=== PATIENT | male | born 1975 | race American Indian/Alaskan Native ===

== ENCOUNTER 2017-01-08 19:02 | Inpatient (IN) ==
[2017-01-08] MEDS ORDERED: ACETAMINOPHEN 325 MG TABLET PO ONE ×2 (19:29→20:53)
[2017-01-08] MEDS ORDERED: CLINDAMYCIN 150 MG CAPSULE PO ONE (19:51)
[2017-01-08 20:16] LABS: Mean Cell Volume 89.2 fL (80.0-100.0); Mean Corpuscular HGB Conc 33.3 g/dL (31.0-36.0); Mean Corpuscular Hemoglobin 29.7 pg (26.0-34.0); Platelet Count 226 K/mcL (140-440); RBC 3.97 M/mcL (4.50-5.90); Red Cell Distribution Width 13.5 % (11.5-14.5)
[2017-01-08 20:39] LABS: ALT/SGPT 12 U/l (0-40); Albumin 4.3 gm/dL (3.2-5.2); Albumin/Globulin Ratio 1.3 (1.0-2.3); Alkaline Phosphatase 84 U/L (39-117); Blood Urea Nitrogen 69 mg/dl (6-20)
[2017-01-08 20:45] LABS: Band Neutrophils % 6 % (0-10); Eosinophils % (Manual) 1 % (0-7); Lymphocytes % 2 % (15-49); Monocytes % (Manual) 2 % (1-12); Platelet Estimate NORMAL (NORMAL); RBC Morphology NORMAL (NORMAL); Segmented Neutrophils % 89 % (38-78)
[2017-01-08] MEDS ORDERED: CALCIUM GLUCONATE 13.95 MEQ in DEXTROSE 5% IN WATER 50 ML IV ONE (21:03)
[2017-01-08] MEDS ORDERED: SODIUM POLYSTYRENE SULFONATE 15 GM/60 ML SUSPENSION PO STA (21:07)
[2017-01-08] MEDS ORDERED: 0.9 % SODIUM CHLORIDE 500 ML IV ONE (21:08)
--- NOTE | 2017-01-09 00:31 | Emergency Department Note ---
Fever HPI - General Chief Complaint: Fever Stated Complaint: chills and body feels weak Time Seen by Provider: 01/08/17 19:50 Source: patient Mode of arrival: ambulatory Limitations: no limitations - History of Present Illness HPI Narrative: 41-year-old male dialysis patient of Dr. Garsia comes in for left calf/thigh pain with weakness and chills. Unclear if he has a fever. No nausea vomiting dyspnea or diarrhea. It came on suddenly when he was at work and so he had to clock out and leave and come here. Denies any injury to the left leg. He does not make any urine - Related Data Home Medications Medication Instructions Recorded Confirmed Simvastatin [Zocor] 40 mg PO HS 02/15/15 01/08/17 Calcitriol [Rocaltrol] 0.25 mcg PO 3XW 01/09/16 01/08/17 Previous Rx's Medication Instructions Recorded calcium citrate-vitamin D3 315 2 tab PO TID 30 Days 09/30/16 mg-200 unit tablet Allergies Allergy/AdvReac Type Severity Reaction Status Date / Time No Known Drug Allergies Allergy Verified 01/08/16 13:43 Review of Systems All systems ED: reviewed and negative except as stated. Fever PMH - Past Medical History Attestation: Yes: The following information was validated with the patient. Medical history: Reports: diabetes, renal disease (On dialysis), other (obesity , OSORIO with hypoxia, neuropathy.) Surgical history ED: Reports: orthopedic, other (All toes have been amputated), other (Gastric bypass) - Social History smoking status: Former smoker Alcohol use: Reports: None Drug use: Reports: none Physical Exam Morbidly obese male no acute distress resting comfortably able to answer questions appropriately. Normocephalic atraumatic. Conjunctive are clear sclerae nonicteric. No nasal discharge or congestion. Oropharynx is pink and moist. Neck is supple without lymphadenopathy or thyromegaly. Heart is regular rate and rhythm. No lungs are clear to auscultation bilaterally without wheezes rales rhonchi or respiratory distress. Abdomen soft nontender nondistended. Examination of bilateral lower feet shows amputation of all 10 toes. He has a 2 mm ulcer at the forefoot on the left does not appear infected and is just draining a small amount of serosanguineous fluid onto the bandage. The left calf is slightly erythematous and tender compared to the right but they both have chronic venous stasis changes. Significant rubor to the left calf without cord felt. +2 radial pulse. Alert oriented no dysarthria or ataxia - General Limitations: no limitations Course Vital Signs Temperature 102.2 F H 01/08/17 19:04 Pulse Rate 117 H 01/08/17 19:04 Respiratory Rate 18 01/08/17 19:04 Blood Pressure 149/79 01/08/17 19:04 Pulse Oximetry (%) 94 01/08/17 19:04 Temperature 101.6 F H 01/09/17 01:16 Pulse Rate 103 H 01/09/17 01:16 Respiratory Rate 22 01/09/17 01:16 Blood Pressure 157/92 01/09/17 01:16 Pulse Oximetry (%) 97 01/09/17 01:16 Fever - Lab Data Lab results reviewed: Yes I reviewed the patient's lab results. Result diagrams: 01/08/17 19:32 01/08/17 19:32 Lab Results 01/08/17 01/08/17 01/08/17 Range/Units 19:32 19:32 19:32 WBC 17.6 H (4.5-11.0) K/mcL RBC 3.97 L (4.50-5.90) M/mcL Hgb 11.8 L (13.5-16.5) g/dL Hct 35.4 L (41.0-55.0) % POC Hct (41.0-55.0) % MCV 89.2 (80.0-100.0) fL MCH 29.7 (26.0-34.0) pg MCHC 33.3 (31.0-36.0) g/dL RDW 13.5 (11.5-14.5) % Plt Count 226 (140-440) K/mcL MPV 9.6 (7.4-10.4) fL Total Counted 100 Seg Neutrophils % 89 H (38-78) % Band Neutrophils % 6 (0-10) % Lymphocytes % 2 L (15-49) % Monocytes % (Manual) 2 (1-12) % Eosinophils % (Manual) 1 (0-7) % Platelet Estimate Normal (NORMAL) RBC Morphology Normal (NORMAL) VBG Lactic Acid 1.0 (0.5-2.2) mmol/L POC Sodium (133-145) mmol/L Sodium 137 (133-145) mmol/L POC Potassium (3.3-5.1) mmol/L Potassium 5.8 H (3.3-5.1) mmol/L POC Chloride (96-108) mmol/L Chloride 93 L (96-108) mmol/L Carbon Dioxide 23 (22-30) mmol/L POC Total CO2 (22-30) mmol/L Anion Gap 21.0 H (8-16) POC BUN (6-20) mg/dl BUN 69 H (6-20) mg/dl Creatinine 8.9 H* (0.7-1.2) mg/dl POC Creatinine (0.7-1.2) mg/dl GFR Calculation 7 Glucose 149 H (70-105) mg/dL POC Glucose (70-105) mg/dL Calcium 7.6 L (8.6-10.4) mg/dl POC WB Ioniz Calcium (1.16-1.32) mmol/L Total Bilirubin 0.5 (0.0-1.0) mg/dL AST 14 (0-37) U/l ALT 12 (0-40) U/l Alkaline Phosphatase 84 (39-117) U/L Total Protein 7.7 (5.9-8.4) gm/dL Albumin 4.3 (3.2-5.2) gm/dL Globulin 3.4 (2.2-3.7) gm/dL Albumin/Globulin Ratio 1.3 (1.0-2.3) 01/08/17 Range/Units 22:35 WBC (4.5-11.0) K/mcL RBC (4.50-5.90) M/mcL Hgb (13.5-16.5) g/dL Hct (41.0-55.0) % POC Hct 34.0 L (41.0-55.0) % MCV (80.0-100.0) fL MCH (26.0-34.0) pg MCHC (31.0-36.0) g/dL RDW (11.5-14.5) % Plt Count (140-440) K/mcL MPV (7.4-10.4) fL Total Counted Seg Neutrophils % (38-78) % Band Neutrophils % (0-10) % Lymphocytes % (15-49) % Monocytes % (Manual) (1-12) % Eosinophils % (Manual) (0-7) % Platelet Estimate (NORMAL) RBC Morphology (NORMAL) VBG Lactic Acid (0.5-2.2) mmol/L POC Sodium 136 (133-145) mmol/L Sodium (133-145) mmol/L POC Potassium 4.4 (3.3-5.1) mmol/L Potassium (3.3-5.1) mmol/L POC Chloride 97 (96-108) mmol/L Chloride (96-108) mmol/L Carbon Dioxide (22-30) mmol/L POC Total CO2 23 (22-30) mmol/L Anion Gap (8-16) POC BUN 71 H (6-20) mg/dl BUN (6-20) mg/dl Creatinine (0.7-1.2) mg/dl POC Creatinine 9.6 H* (0.7-1.2) mg/dl GFR Calculation Glucose (70-105) mg/dL POC Glucose 200 H (70-105) mg/dL Calcium (8.6-10.4) mg/dl POC WB Ioniz Calcium 0.89 L (1.16-1.32) mmol/L Total Bilirubin (0.0-1.0) mg/dL AST (0-37) U/l ALT (0-40) U/l Alkaline Phosphatase (39-117) U/L Total Protein (5.9-8.4) gm/dL Albumin (3.2-5.2) gm/dL Globulin (2.2-3.7) gm/dL Albumin/Globulin Ratio (1.0-2.3) Patient does not make urine so not collected - Radiology Data Radiology results reviewed: Yes I reviewed the patient's radiology results. Chest x-ray pulmonary venous congestion but no acute infiltrate Ultrasound of left lower leg negative for clot - EKG Data EKG attestation: Yes I reviewed and interpreted this EKG. EKG results narrative: EKG shows normal sinus rhythm no ischemia rate 99 Disposition Clinical Impression: Hyperkalemia, Chronic kidney disease on chronic dialysis Cellulitis Qualifiers: Site of cellulitis: extremity Site of cellulitis of extremity: lower extremity Laterality: left Qualified Code(s): L03.116 - Cellulitis of left lower limb Diabetic foot ulcer associated with secondary diabetes mellitus Qualifiers: Diabetic foot ulcer location: midfoot Laterality: left Non-pressure ulcer stage : unspecified non-pressure ulcer stage Qualified Code(s): E08.621 - Diabetes mellitus due to underlying condition with foot ulcer Summary: Initial workup to rule out DVT but also make sure there was no other cause for his febrile illness besides cellulitis. He does not appear septic or toxic although he does meet criteria for sepsis intervention with fever associated lab -especially given his high risk context of diabetes and dialysis. He states though that he is not on insulin secondary to gastric bypass fixing his diabetes. He initially appeared to be somewhat dehydrated so 500 mL normal saline bolus was given Blood cultures were done and antibiotics started. Then his potassium came back high and so he was given calcium and Kayexalate to bring that down-it came down from 5.8 down to 4.4. There were no EKG changes. Chest x-ray showed some pulmonary venous congestion-but we have allowed the patient to drink and he took in almost 1400 mL of fluid during his time in the ER, in addition to the fluid bolus . He was given Tylenol for the fever which did bring it down somewhat but did not break it. I discussed his situation with Dr. Peña the hospitalist because I was concerned for the elevated white count and fever in the context of high risk factors including diabetes and dialysis-even though cellulitis was clearly the source. He agreed to accept the patient for inpatient care here Disposition: Xfer As Inpt ([facility]) Condition: Fair
--- NOTE | 2017-01-09 00:49 | Internal Med History&Physical ---
Medical - H&P: [facility] Patient information: Note initiated : 01/09/17 at 12:43 am Service Date, if different from initiated Date: [] Patient: Ji Church a 41 y/o M admitted on for chills and body feels weak. Chief Complaint: [] History of present illness: Mr. Church is a 41 year old male with h/o DM, chr left leg wound, nathalie transmetatarsal amputations, ESRD on HD, MWF presents to the ER with complaints of fatigue, malaise, fever and chills. The patient notes that since this AM he has not been feeling well, he was doing well yesterday, he had feeling sick, tired, having fever chills and rigors, he notes that his leg was more sore than before, and his likely noticed it to be more red. He notes that he has had h/o cellulitis in the past, h/o mrsa in the past, and given that his symptoms were similar to his cellulitis in the past he decided to come to the ER In the ER he was noted to be tachycardic, febrile, with elevated wbc count, lactic acid is normal, CXR on my read shows mild pulmonary congestion. he was hyperkalemic on presentation, which was medically treated and repeat K was wnl. patient was present during the interview, and the patient denies any cough , sinus issues, any known injury to the leg, he has chr wound on the base of the foot, which has mild drainage, and he follows with Dr Sánchez for same, no worsening or increased drainage noted on that wound. The patient does not make urine, had has last HD on Tuesday and notes he tries to be compliant with dietary restrictions but is not always successful. All systems: reviewed and no additional remarkable complaints except as stated ( as mentioned in HPI) Medical - H&P: PMH Medical history: Medical History (Last Updated 01/09/17 @ 00:31 by Jose Alfredo Page MD) Diabetic foot ulcer associated with secondary diabetes mellitus (Acute) Cast removal (Acute) Ulcer (Acute) DM MOrbid obesity ESRD on HD Surgical history: gastric bypass nathlaie TMAleft arm fistula. Pertinent family history: mother with DM, [place], no h/o cancer in family Social history: lives with ex smoker ex etoh no recreational drugs. Medical - H&P: Meds Home Medications Medication Instructions Recorded Confirmed Type Simvastatin [Zocor] 40 mg PO HS 02/15/15 01/08/17 History Calcitriol [Rocaltrol] 0.25 mcg PO 3XW 01/09/16 01/08/17 History calcium citrate-vitamin D3 315 2 tab PO TID 30 Days 09/30/16 01/08/17 Rx mg-200 unit tablet Allergies Allergy/AdvReac Type Severity Reaction Status Date / Time No Known Drug Allergies Allergy Verified 01/08/16 13:43 Medical - H&P: Exam - Constitutional Vitals: Temp Pulse Resp BP Pulse Ox 101.5 F H 99 H 21 135/61 95 01/08/17 23:04 01/08/17 23:36 01/08/17 23:36 01/08/17 23:31 01/08/17 23:36 Exam: GENERAL: The patient is a well-developed, well-nourished in no apparent distress. Is alert and oriented x3. Morbidly obese VITAL SIGNS: Reviewed and as noted elsewhere. HEENT: Head is normocephalic and atraumatic. Extraocular muscles are intact. Pupils are equal, round, and reactive to light. Nares appeared normal. Mouth appears any without lesions. Mucous membranes are moist. NECK: Normal to inspection, Supple, No lymphadenopathy or thyromegaly. LUNGS: Air entry equal on both sides, no wheezing, crackles or rhonchi noted. No accessory muscles of respiration HEART: Regular rate and rhythm normal, S1 and S2 heard, no Gallop, S3 or Rub Noted, No Gross murmur heard. ABDOMEN: Soft, nontender, and nondistended. Positive bowel sounds. No hepatosplenomegaly was noted. large abdomen EXTREMITIES: No cyanosis, clubbing, rash, lesions or edema. left leg has erythema extending from ankle to mid leg, no skin break noted. no localized abscess. The patient has nathalie TMA and on the left foot has a 0.5cms grad 3 pressure ulcer which has mild yellowish discharge, NEUROLOGIC: Cranial nerves II through XII are grossly intact. Motor and Sensory System Grossly Intact PSYCHIATRIC: Normal affect, Normal Mood. Appropriate Behavior. SKIN: No ulceration or wounds noted, No jaundice, No rash noted. Medical - H&P: Reslt - Labs CBC & Chem 7: 01/08/17 19:32 01/08/17 19:32 Labs: Short CBC 01/08/17 Range/Units 19:32 WBC 17.6 H (4.5-11.0) K/mcL Hgb 11.8 L (13.5-16.5) g/dL Hct 35.4 L (41.0-55.0) % Plt Count 226 (140-440) K/mcL BMP 01/08/17 19:32 Sodium 137 Potassium 5.8 H Chloride 93 L Carbon Dioxide 23 BUN 69 H Creatinine 8.9 H* Glucose 149 H Calcium 7.6 L Liver Function 01/08/17 Range/Units 19:32 Total Bilirubin 0.5 (0.0-1.0) mg/dL AST 14 (0-37) U/l ALT 12 (0-40) U/l Alkaline Phosphatase 84 (39-117) U/L Albumin 4.3 (3.2-5.2) gm/dL Medical - H&P: A/P - Narrative A/P Narrative: Cellulitis: left lower extremity, given h/o MRSA, DM, and ESRD, treat with vanco and zosyn, monitor, await blood cultures. Hyperkalemia resolved in ER Sepsis Due to cellulitis, treat with antibiotics, BP stable, lactate has received 2L fluid in the ER, ESRD on HD, MWF, will discuss with nephrology on need for HD tomorrow vs tuesday , CXR shows mild pulmonary congestion, DM, sliding scale insulin Diet renal diabetic Code full DVT hep sq
[2017-01-09] MEDS ORDERED: NALOXONE HCL 0.4 MG/ML VIAL IV PRN (01:16)
[2017-01-09] MEDS ORDERED: VANCOMYCIN 1,500 MG in 0.9 % SODIUM CHLORIDE 500 ML IV ONE (01:16)
[2017-01-09] MEDS ORDERED: DEXTROSE 50% 50 ML VIAL IV PRN (01:16)
[2017-01-09] MEDS ORDERED: SENNOSIDES 1 TABLET PO PRN (01:16)
[2017-01-09] MEDS ORDERED: HYDROcodone/APAP 5/325MG TABLET PO PRN (01:16)
[2017-01-09] MEDS ORDERED: ONDANSETRON 4 MG/2 ML VIAL IV PRN (01:16)
[2017-01-09] MEDS ORDERED: VANCOMYCIN PER PHARMACY IV ONE (01:16)
[2017-01-09] MEDS ORDERED: PIPERACILLIN SODIUM/TAZOBACTAM 3.375 GM in DEXTROSE 5% IN WATER 50 ML IV SCH (01:16)
[2017-01-09] MEDS ORDERED: IPRATROPIUM/ALBUTEROL 3 ML AMPUL.NEB NEB PRN (01:16)
[2017-01-09] MEDS ORDERED: PIPERACILLIN SODIUM/TAZOBACTAM 3.375 GM VIAL IV ONE (01:28)
[2017-01-09] MEDS ORDERED: VANCOMYCIN 1 GM VIAL ONE (01:29)
[2017-01-09] MEDS ORDERED: VANCOMYCIN 500 MG VIAL ONE (01:30)
[2017-01-09] MEDS: ACETAMINOPHEN 325 MG TABLET PO PRN ×2 (04:48→09:21)
[2017-01-09] MEDS ORDERED: ACETAMINOPHEN 325 MG TABLET PO ONE (04:50)
[2017-01-09 05:52] LABS: Estimated Average Glucose(eAG) 146 mg/dL; Hemoglobin A1C 6.7 % HGB (4.0-6.0)
[2017-01-09 06:02] LABS: Basophils # (Auto) 0 K/mcL (0.0-0.3); Basophils % (Auto) 0 % (0.0-2.0); Eosinophils # (Auto) 0 K/mcL (0.0-0.7); Eosinophils % (Auto) 0 % (0.0-7.0); Granulocytes % (Auto) 95.9 % (38.0-78.0); Lymphocytes # (Auto) 0.7 K/mcL (1.5-4.8); Lymphocytes % (Auto) 2.6 % (15.5-49.0); Mean Cell Volume 89.2 fL (80.0-100.0); Mean Corpuscular HGB Conc 33.7 g/dL (31.0-36.0); Mean Corpuscular Hemoglobin 30.1 pg (26.0-34.0); Monocytes # (Auto) 0.4 K/mcL (0.1-0.9); Monocytes % (Auto) 1.5 % (1.0-12.0); Platelet Count 202 K/mcL (140-440); RBC 3.62 M/mcL (4.50-5.90); Red Cell Distribution Width 13.4 % (11.5-14.5)
[2017-01-09 06:20] LABS: ALT/SGPT 10 U/l (0-40); Albumin 3.8 gm/dL (3.2-5.2); Albumin/Globulin Ratio 1.2 (1.0-2.3); Alkaline Phosphatase 71 U/L (39-117); Bilirubin,Direct < 0.2 mg/dL (0.0-0.3); Blood Urea Nitrogen 77 mg/dl (6-20); Gamma Glutamyl Transpeptidase 17 U/L (8-61); Magnesium 1.8 mg/dL (1.6-2.5); Uric Acid 6.8 mg/dL (2.5-8.0)
[2017-01-09] MEDS ORDERED: VANCOMYCIN PER PHARMACY IV SCH (07:15)
[2017-01-09] MEDS: INSULIN LISPRO 1 UNIT/0.01 ML UNIT SQ SCH ×4 (07:41→21:00)
--- NOTE | 2017-01-09 08:05 | Ultrasound Report ---
CLINICAL INFORMATION: Leg pain and swelling COMPARISON: None. FINDINGS: The entire deep venous system including the common femoral, superficial femoral, popliteal and paired trifurcation calf veins are easily compressible and show normal venous blood flow on color and spectral Doppler. No evidence of thrombus IMPRESSION: Negative exam - no evidence of deep vein thrombosis. Interpreted and Authenticated by: Juan M Angel 01/09/17
--- NOTE | 2017-01-09 08:10 | XRay Report ---
CLINICAL INFORMATION: Fever COMPARISON: None. FINDINGS:The heart size, mediastinum and pulmonary vessels are unremarkable. The lungs are clear. There are no effusions. The bones and soft tissues are within normal limits. IMPRESSION: Normal chest. Interpreted and Authenticated by: Juan M Angel 01/09/17
--- NOTE | 2017-01-09 08:59 | Internal Med Progress Note ---
Medical - PN: Subj Patient information: Note initiated : 01/09/17 at 8:56 am Service Date, if different from initiated Date: [] Patient: Ji Church a 41 y/o M admitted on 01/09/17 for chills and body feels weak. Chief Complaint: [] Interval history: Mr. Church is a 41 year old male with h/o DM, chr left leg wound, nathalie transmetatarsal amputations, ESRD on HD, MWF presents to the ER with complaints of fatigue, malaise, fever and chills. The patient notes that since this AM he has not been feeling well, he was doing well yesterday, he had feeling sick, tired, having fever chills and rigors, he notes that his leg was more sore than before, and his likely noticed it to be more red. He notes that he has had h/o cellulitis in the past, h/o mrsa in the past, and given that his symptoms were similar to his cellulitis in the past he decided to come to the ER In the ER he was noted to be tachycardic, febrile, with elevated wbc count, lactic acid is normal, CXR on my read shows mild pulmonary congestion. he was hyperkalemic on presentation, which was medically treated and repeat K was wnl. patient was present during the interview, and the patient denies any cough , sinus issues, any known injury to the leg, he has chr wound on the base of the foot, which has mild drainage, and he follows with Dr Sánchez for same, no worsening or increased drainage noted on that wound. The patient does not make urine, had has last HD on Tuesday and notes he tries to be compliant with dietary restrictions but is not always successful. 01/09, Pt seen examined, no acute overnight event, patient remains febrile, but denies any other complaints. His labs reviewed show that his wbc count is up to 27K, his lactate is neg, cmp shows wnl K, CXR reported as negative His leg feels better today, the area of redness has not changed significantly since yesterday, microbiology remains pending. Pertinent ROS: Denies headache, dizziness Denies chest pain, palpitations Denies cough or shortness of breath Denies abdominal pain, nausea or vomiting. - Constitutional Vitals: Vital Signs Temp Pulse Resp BP Pulse Ox 101.1 F H 95 H 24 H 179/82 90 01/09/17 05:33 01/09/17 05:10 01/09/17 05:10 01/09/17 05:10 01/09/17 06:59 Period Temp Pulse Resp BP Sys/Mcneill Pulse Ox Last 24 Hr 101.0 F-103.3 F 95-104 22-24 157-179/82-92 85-97 Intake and Output 01/08/17 01/09/17 01/09/17 21:59 05:59 13:59 Intake Total 850 / 1430 Balance 850 / 1430 Weight 329 lb 8 oz Intake & Output: Intake & Output 01/08/17 01/09/17 01/09/17 21:59 05:59 13:59 Intake Total 850 / 1430 Balance 850 / 1430 Weight 329 lb 8 oz Intake: Oral 300 / 300 IV - Manual Only 550 / 550 Exam: Constitutional; Afebrile, cooperative, alert, not in distress, morbidly obese Eyes- No icterus, , No periorbital swelling Ears- Ext ear normal, hearing normal to conversation. Neck- Midline trachea, supple Respiratory system: Air Entry equal on both sides, No crackles or wheezing, no rhonchi. CVS- Rate rhythm regular, S1,S2 heard, no gallop, no rub. Abdomen- Soft nontender abdomen, no organomegaly, no tenderness, no guarding or rigidity, SLAT TWISTER- AOOx3, moving all extremities, no gross focal deficit noted. Extremity: patient redness extends to above ankle and involves 2/3 of the left lower leg, nearly unchanged since yesterday, no skip lesions noted. Medical - PN: Obj Da - Labs CBC & Chem 7: 01/09/17 04:49 01/09/17 04:49 Labs: Abnormal Lab Results 01/09/17 01/09/17 04:49 04:49 WBC 27.0 H RBC 3.62 L Hgb 10.9 L Hct 32.3 L Gran % 95.9 H Lymph % (Auto) 2.6 L Gran # 25.9 H Lymph # 0.7 L Chloride 91 L Anion Gap 21.0 H BUN 77 H Creatinine 9.7 H* Glucose 179 H Hemoglobin A1c 6.7 H Calcium 7.4 L Meds: Medications Acetaminophen (Tylenol) 650 mg PO Q6HP PRN PRN Reason: PAIN/FEVER > 101 Last Admin: 01/09/17 04:48 Dose: 650 mg Acetaminophen/Hydrocodone Bitart ([place] 5/325mg) 1 tab PO Q4HP PRN PRN Reason: Pain Albuterol/Ipratropium (Duoneb) 3 ml NEB Q4HRT PRN PRN Reason: Shortness Of Breath Or Wheezing Calcitriol (Rocaltrol) 0.25 mcg PO MoWeFr@0900 [facility] Calcium Carbonate/Glycine (Tums) 1,000 mg CHEWED TIDAC [facility] Calcium/Vitamin D (Calcium W/Vit D3) 2 mg PO TID [facility] Dextrose (Dextrose 50%) 0 ml IV UD PRN PRN Reason: Hypoglycemia Diagnostic Test (Pha) (Accu-Chek) 1 each FS ACHS [facility] Last Admin: 01/09/17 07:41 Dose: 1 each Heparin Sodium (Porcine) (Heparin) 5,000 unit SQ Q12 VICENTE Piperacillin Sod/Tazobactam (Sod 2.25 gm/ Dextrose) 50 mls @ 100 mls/hr IV Q12H [facility] Insulin Human Lispro (Humalog) 0 unit SQ ACHS [facility] PRN Reason: Protocol Last Admin: 01/09/17 07:41 Dose: 1 unit Naloxone HCl (Narcan) 0.1 mg IV Q2MIN PRN PRN Reason: Opiate Reversal Ondansetron HCl (Zofran) 4 mg IV Q4HP PRN PRN Reason: Nausea And Vomiting Senna (Senokot) 2 tab PO HSP PRN PRN Reason: Constipation Simvastatin (Zocor) 40 mg PO HS [facility] Vancomycin HCl (Vancomycin Per Pharmacy) 1 order IV UD [facility] Medical - PN: A/P - Time Spent With Patient Total time spent is greater than 50% in coordination of care (as documented) at patient's floor/unit and/or counseling patient: - Narrative A/P Narrative: Cellulitis: left lower extremity, given h/o MRSA, DM, and ESRD, treat with vanco and zosyn, monitor, await blood cultures. Fever persistant, will get another set of bc today, Hyperkalemia resolved in ER Sepsis Due to cellulitis, treat with antibiotics, wbc worsening today, but bp stable, lactate neg, ESRD on HD, MWF, CXR reported neg, will get his [facility] HD on tuesday. DM, sliding scale insulin, glucose at goal. Diet renal diabetic Code full DVT hep sq Medical - PN: Qual - VTE Deep Vein Thrombosis/Pulmonary Embolism Present on Admission: No
[2017-01-09] MEDS ORDERED: SODIUM POLYSTYRENE SULFONATE 15 GM/60 ML SUSPENSION PO SCH (09:00)
[2017-01-09] MEDS ORDERED: CALCIUM W/VIT D3 500 MG TABLET PO SCH (09:00)
[2017-01-09] MEDS: CALCIUM CARBONATE 500 MG TAB.CHEW CHEWED SCH ×3 (09:19→17:25)
[2017-01-09] MEDS: HEPARIN 5,000 UNIT/ML VIAL SQ SCH ×2 (09:20→20:59)
[2017-01-09] MEDS ORDERED: CALCIUM W/VIT D3 500 MG TABLET PO ONE (09:30)
[2017-01-09] MEDS: PIPERACILLIN SODIUM/TAZOBACTAM 2.25 GM in DEXTROSE 5% IN WATER 50 ML IV SCH ×2 (11:48→21:00)
[2017-01-09] MEDS: CALCIUM W/VIT D3 500 MG TABLET PO SCH ×2 (15:45→20:59)
[2017-01-09] MEDS: SIMVASTATIN 40 MG TABLET PO SCH (21:00)
[2017-01-10 06:40] LABS: Basophils # (Auto) 0 K/mcL (0.0-0.3); Basophils % (Auto) 0.4 % (0.0-2.0); Eosinophils # (Auto) 0 K/mcL (0.0-0.7); Eosinophils % (Auto) 0.3 % (0.0-7.0); Lymphocytes # (Auto) 1.3 K/mcL (1.5-4.8); Mean Cell Volume 89.8 fL (80.0-100.0); Mean Corpuscular HGB Conc 33.7 g/dL (31.0-36.0); Mean Corpuscular Hemoglobin 30.3 pg (26.0-34.0); Monocytes # (Auto) 0.4 K/mcL (0.1-0.9); Monocytes % (Auto) 3.3 % (1.0-12.0); Platelet Count 179 K/mcL (140-440); RBC 3.27 M/mcL (4.50-5.90); Red Cell Distribution Width 13.9 % (11.5-14.5)
[2017-01-10 07:24] LABS: ALT/SGPT 10 U/l (0-40); Albumin 3.4 gm/dL (3.2-5.2); Albumin/Globulin Ratio 1.1 (1.0-2.3); Alkaline Phosphatase 61 U/L (39-117); Bilirubin,Direct < 0.2 mg/dL (0.0-0.3); Blood Urea Nitrogen 92 mg/dl (6-20); Gamma Glutamyl Transpeptidase 20 U/L (8-61)
[2017-01-10] MEDS: CALCIUM CARBONATE 500 MG TAB.CHEW CHEWED SCH ×3 (07:41→17:32)
[2017-01-10] MEDS: INSULIN LISPRO 1 UNIT/0.01 ML UNIT SQ SCH ×4 (07:42→21:04)
[2017-01-10] MEDS ORDERED: CALCITRIOL 0.25 MCG CAPSULE PO SCH (09:00)
[2017-01-10] MEDS: PIPERACILLIN SODIUM/TAZOBACTAM 2.25 GM in DEXTROSE 5% IN WATER 50 ML IV SCH ×2 (09:11→21:07)
[2017-01-10] MEDS: HEPARIN 5,000 UNIT/ML VIAL SQ SCH ×2 (09:11→21:06)
[2017-01-10] MEDS: CALCIUM W/VIT D3 500 MG TABLET PO SCH ×3 (09:13→21:07)
--- NOTE | 2017-01-10 09:34 | Nephrology Consult Note ---
History of Present Illness - Reason for Consult Patient information: Note initiated : 01/10/17 at 9:29 am Service Date, if different from initiated Date: [] Patient: Ji Church a 41 y/o M admitted on 01/09/17 for chills and body feels weak. Chief Complaint: [] Consult date: 01/10/17 end stage renal disease Requesting physician: Sara Horner - Chief Complaint CELLULITIS/FEVER - History of Present Illness Mr Church is a 41 y/o pleasant male with PMH of DM type 2, morbid obesity, ESRD on HD and other medical issues who is admitted with left LE cellulitis Patient presented to the ED on Tuesday night with fever, chills and left LE pain and redness. He had fever of 102, s/o cellulitis on left LE and he was tachycardic but with normal BP. Patient has been hospitalised for the treatment for the same. He is currently on zosyn and vancomycin for this with improving symptoms Patient also had hyperkalemia on presentation which was treated with kayexalate and his K has been in normal range since He c/o LE pain and redness He has no c/o SOB, CP, dizziness No edema No urinary symptoms No other significant issues Review of Systems All systems PM: reviewed and no additional remarkable complaints except as stated (as mentioned in HPI) Past History Past medical history: ESRD on HD anemia of CKD renal osteodystrophy DM type 2 morbid obesity OSORIO Past surgical history: s/p gastric bypass s/p AVF surgery s/p right TMA Past family history: Mother had ESRD from DM, Father has h/o HTN and dyslipidemia Past social history: lives with his currently no addictions Medications and Allergies Home Medications Medication Instructions Recorded Confirmed Type Simvastatin [Zocor] 40 mg PO HS 02/15/15 01/08/17 History Calcitriol [Rocaltrol] 0.25 mcg PO 3XW 01/09/16 01/08/17 History calcium citrate-vitamin D3 315 2 tab PO TID 30 Days 09/30/16 01/08/17 Rx mg-200 unit tablet Calcium Acetate [Phoslo] 667 mg PO TIDCC 01/09/17 01/09/17 History Allergies Allergy/AdvReac Type Severity Reaction Status Date / Time No Known Drug Allergies Allergy Verified 01/08/16 13:43 Exam - Vital Signs Vital signs: Temp Pulse Resp BP Pulse Ox 97.4 F 74 16 147/72 95 01/10/17 08:00 01/10/17 08:00 01/10/17 08:00 01/10/17 08:00 01/10/17 08:00 - General Appearance General appearance: appears started age, obese EENT: mucous membranes moist Neck: no JVD Respiratory: clear Cardiology: no rub, normal S1, normal S2 Gastrointestinal: no tenderness, no guarding, no organomegaly Integumentary: warm and dry (left LE with tenderness and increased temp on touch ) Musculoskeletal: no cyanosis, no clubbing Psychiatric: mood/affect appropriate Results - Lab Results 01/10/17 04:44 01/10/17 04:44 Most recent lab results Calcium 7.1 mg/dl (8.6-10.4) L 01/10/17 04:44 Phosphorus 5.2 mg/dL (2.7-4.5) H 01/10/17 04:44 Magnesium 2.0 mg/dL (1.6-2.5) 01/10/17 04:44 Assessment and Plan (1) ESRD on dialysis Dialysis today for 5 hrs using revaclear max dialyser, 3K/2.5Ca dialysate, QB 400ML/MIN, qd 800ml/min, UF goal to dry weight please dose meds per dialysis Anemia from CKD; will monitor and resume aranesp as outpt cellulitis: on broad spectrum antibiotics, with improving white count, fever blood culture negative management per hospitalist team Status: Acute (2) Cellulitis Status: Acute Qualifiers: Site of cellulitis: extremity Site of cellulitis of extremity: lower extremity Laterality: left Qualified Code(s): L03.116 - Cellulitis of left lower limb
[2017-01-10 10:39] LABS: Vancomycin,Random 15.7 ug/ml
[2017-01-10] MEDS: ACETAMINOPHEN 325 MG TABLET PO PRN (15:26)
--- NOTE | 2017-01-10 16:15 | Internal Med Progress Note ---
Medical - PN: Subj Patient information: Note initiated : 01/10/17 at 4:15 pm Service Date, if different from initiated Date: [] Patient: Ji Church a 41 y/o M admitted on 01/09/17 for chills and body feels weak. Chief Complaint: [] Interval history: January 09, 2017: History of present illness: Mr. Church is a 41 year old male with h/o DM, chr left leg wound, nathalie transmetatarsal amputations, ESRD on HD, MWF presents to the ER with complaints of fatigue, malaise, fever and chills. The patient notes that since this AM he has not been feeling well, he was doing well yesterday, he had feeling sick, tired, having fever chills and rigors, he notes that his leg was more sore than before, and his likely noticed it to be more red. He notes that he has had h/o cellulitis in the past, h/o mrsa in the past, and given that his symptoms were similar to his cellulitis in the past he decided to come to the ER In the ER he was noted to be tachycardic, febrile, with elevated wbc count, lactic acid is normal, CXR on my read shows mild pulmonary congestion. he was hyperkalemic on presentation, which was medically treated and repeat K was wnl. patient was present during the interview, and the patient denies any cough , sinus issues, any known injury to the leg, he has chr wound on the base of the foot, which has mild drainage, and he follows with Dr Sánchez for same, no worsening or increased drainage noted on that wound. The patient does not make urine, had has last HD on Tuesday and notes he tries to be compliant with dietary restrictions but is not always successful. 01/09, Pt seen examined, no acute overnight event, patient remains febrile, but denies any other complaints. His labs reviewed show that his wbc count is up to 27K, his lactate is neg, cmp shows wnl K, CXR reported as negative His leg feels better today, the area of redness has not changed significantly since yesterday, microbiology remains pending. January 10: today, the patient notes he is feeling better. His leg is feeling less tender. Although it is still quite tender to the touch. He otherwise is not experiencing subjective fever or chills, nausea or vomiting, eadaches or dizziness, chest pain or shortness of breath . He really makes no urine. e is having dialysis this morning. He did have a temperature of 100 at 4 AM, but has been afebrile since then. he reports that his metatarsal foot ulceron the left leghas very minimal drainage. -nurses note he has quite severe sleep apnea. He apparently rolling his CPAP at home, and has not been able to get another one yet. - Constitutional Vitals: Vital Signs Temp Pulse Resp BP Pulse Ox 97.2 F 58 L 14 144/89 99 01/10/17 12:00 01/10/17 15:46 01/10/17 12:00 01/10/17 15:46 01/10/17 12:00 Period Temp Pulse Resp BP Sys/Mcneill Pulse Ox Last 24 Hr 97.2 F-100.2 F 58-74 14-22 130-159/72-89 64-99 Intake and Output 01/10/17 01/10/17 01/10/17 05:59 13:59 21:59 Intake Total 200 / 200 360 / 360 Output Total 5224 / 5224 49084 / 48132 Balance 200 / 200 -4864 / -4864 -48402 / -59663 Intake & Output: Intake & Output 01/10/17 01/10/17 01/10/17 05:59 13:59 21:59 Intake Total 200 / 200 360 / 360 Output Total 5224 / 5224 00890 / 88941 Balance 200 / 200 -4864 / -4864 -93765 / -81857 Intake: Oral 200 / 200 360 / 360 Output: Hemodialysis UF 5224 / 5224 27862 / 02207 Other: Meal snack Breakfast Percent of Meal Consumed 100% 100% Feeding Ability Assist with Tray Set Up Independent # Bowel Movements 1 on exam, he is an overweight white male,who is in no acute distress. He is lying flat, while the nurse accesses his fistula. Neck is supple without obvious lymphadenopathy or JVD. Cardiac exam shows regular rate and rhythm. Lungs are clear to auscultation. Abdomen is soft and nontender. Extremities: Show no significant edema. He has bilateral metatarsal amputations The left foot has a small ulcer, which is bandaged,at the area of the first metatarsal. There is a rather purplish pink discoloration from his ankle up to his upper barba. These are marked with ink. It appears that the redness has shrunk somewhat from previous outline. There is still somewhat woody edema, and his leg is really quite tender to the touch. neurologic: Is grossly nonfocal. Skin exam: Does not show any other worrisome lesions. Medical - PN: Obj Da - Labs CBC & Chem 7: 01/10/17 04:44 01/10/17 04:44 Labs: Abnormal Lab Results 01/10/17 01/10/17 01/09/17 04:44 04:44 04:49 WBC 11.5 H RBC 3.27 L Hgb 9.9 L Hct 29.3 L Gran % 85.0 H Lymph % (Auto) 11.0 L Gran # 9.7 H Lymph # 1.3 L Chloride 90 L 91 L Anion Gap 21.0 H 21.0 H BUN 92 H 77 H Creatinine 13.0 H* 9.7 H* Glucose 118 H 179 H Hemoglobin A1c 6.7 H Calcium 7.1 L 7.4 L Phosphorus 5.2 H Triglycerides 179 H 01/09/17 04:49 WBC 27.0 H RBC 3.62 L Hgb 10.9 L Hct 32.3 L Gran % 95.9 H Lymph % (Auto) 2.6 L Gran # 25.9 H Lymph # 0.7 L Chloride Anion Gap BUN Creatinine Glucose Hemoglobin A1c Calcium Phosphorus Triglycerides December 28: Lactic acid is normal at 0.8. December 27: -Cultures are negative so far. -EKG showsnormal sinus rhythm at a rate of 98, essentially normal. -chest x-ray was normal. -venous Dopplerof the left leg showed no DVT Meds: Medications Acetaminophen (Tylenol) 650 mg PO Q6HP PRN PRN Reason: PAIN/FEVER > 101 Last Admin: 01/10/17 15:26 Dose: 650 mg Acetaminophen/Hydrocodone Bitart ([place] 5/325mg) 1 tab PO Q4HP PRN PRN Reason: Pain Last Admin: 01/09/17 21:25 Dose: 1 tab Albuterol/Ipratropium (Duoneb) 3 ml NEB Q4HRT PRN PRN Reason: Shortness Of Breath Or Wheezing Calcitriol (Rocaltrol) 0.25 mcg PO MoWeFr@0900 [facility] Last Admin: 01/10/17 09:42 Dose: 0.25 mcg Calcium Carbonate/Glycine (Tums) 1,000 mg CHEWED TIDAC [facility] Last Admin: 01/10/17 12:06 Dose: 1,000 mg Calcium/Vitamin D (Calcium W/Vit D3) 1,000 mg PO TID [facility] Last Admin: 01/10/17 15:26 Dose: 1,000 mg Dextrose (Dextrose 50%) 0 ml IV UD PRN PRN Reason: Hypoglycemia Diagnostic Test (Pha) (Accu-Chek) 1 each FS ACHS [facility] Last Admin: 01/10/17 11:51 Dose: 1 each Heparin Sodium (Porcine) (Heparin) 5,000 unit SQ Q12 [facility] Last Admin: 01/10/17 09:11 Dose: 5,000 unit Piperacillin Sod/Tazobactam (Sod 2.25 gm/ Dextrose) 50 mls @ 100 mls/hr IV Q12H [facility] Last Admin: 01/10/17 09:11 Dose: 100 mls/hr Vancomycin HCl 1,500 mg/ (Sodium Chloride) 500 mls @ 333.3 mls/hr IV ONCE ONE Stop: 01/11/17 11:30 Insulin Human Lispro (Humalog) 0 unit SQ [facility] PRN Reason: Protocol Last Admin: 01/10/17 12:06 Dose: 1 unit Naloxone HCl (Narcan) 0.1 mg IV Q2MIN PRN PRN Reason: Opiate Reversal Ondansetron HCl (Zofran) 4 mg IV Q4HP PRN PRN Reason: Nausea And Vomiting Senna (Senokot) 2 tab PO HSP PRN PRN Reason: Constipation Simvastatin (Zocor) 40 mg PO HS [facility] Last Admin: 01/09/17 21:00 Dose: 40 mg Vancomycin HCl (Vancomycin Per Pharmacy) 1 order IV UD [facility] Medical - PN: A/P - Time Spent With Patient Total time spent is greater than 50% in coordination of care (as documented) at patient's floor/unit and/or counseling patient: 25 - 35 minutes - Narrative A/P Narrative: assessment and plan: #1. infectious disease. -Left lower extremity Cellulitis: given h/o MRSA, DM, and ESRD, treat with vanco and zosyn, monitor, await blood cultures. -The patient was still febrile this morning, but has been afebrile since. He is improving both objectively and subjectively. continue current antibiotics, and continue to monitor. re-culture if he spikes another temperature. -He is also at risk for osteomyelitis, given the location of his foot ulcer. continue to monitor. #2.Hyperkalemia -resolved. #3.Sepsis Due to cellulitis,results. #4.ESRD on HD, MWF, -BUN, creatinine, calcium, phosphorus anion gap, were all quite abnormal this morning. Recheck labs after dialysis. -renal osteodystrophy. #5. DM, - sliding scale insulin, glucose at goal. -Diet renal diabetic #6.Code- full. #7.DVT: hep sq 38. Sleep apnea. Encourage patient to reapply for replacement CPAP. 39. Morbid obesity. Patient is status post gastric bypass. approximately 25 minutes was spent today, reviewing the patient's records and test results meeting with him and examining him, and writing orders. Medical - PN: Qual - VTE Deep Vein Thrombosis/Pulmonary Embolism Present on Admission: No
[2017-01-10] MEDS: SIMVASTATIN 40 MG TABLET PO SCH (21:07)
[2017-01-11 04:45] LABS: Basophils # (Auto) 0 K/mcL (0.0-0.3); Basophils % (Auto) 0.4 % (0.0-2.0); Eosinophils # (Auto) 0 K/mcL (0.0-0.7); Eosinophils % (Auto) 0.4 % (0.0-7.0); Granulocytes % (Auto) 86.6 % (38.0-78.0); Lymphocytes # (Auto) 0.7 K/mcL (1.5-4.8); Lymphocytes % (Auto) 8.4 % (15.5-49.0); Mean Cell Volume 88.6 fL (80.0-100.0); Mean Corpuscular HGB Conc 33.9 g/dL (31.0-36.0); Mean Corpuscular Hemoglobin 30.1 pg (26.0-34.0); Monocytes # (Auto) 0.4 K/mcL (0.1-0.9); Monocytes % (Auto) 4.2 % (1.0-12.0); Platelet Count 177 K/mcL (140-440); RBC 3.51 M/mcL (4.50-5.90); Red Cell Distribution Width 13.9 % (11.5-14.5)
[2017-01-11 05:28] LABS: ALT/SGPT 12 U/l (0-40); Albumin 3.5 gm/dL (3.2-5.2); Alkaline Phosphatase 66 U/L (39-117); Bilirubin,Direct < 0.2 mg/dL (0.0-0.3); Blood Urea Nitrogen 42 mg/dl (6-20); Gamma Glutamyl Transpeptidase 26 U/L (8-61); Uric Acid 4.4 mg/dL (2.5-8.0)
[2017-01-11] MEDS: CALCIUM CARBONATE 500 MG TAB.CHEW CHEWED SCH ×3 (07:02→17:17)
[2017-01-11] MEDS: PIPERACILLIN SODIUM/TAZOBACTAM 2.25 GM in DEXTROSE 5% IN WATER 50 ML IV SCH ×2 (08:53→22:09)
[2017-01-11] MEDS: HEPARIN 5,000 UNIT/ML VIAL SQ SCH ×2 (08:53→22:07)
[2017-01-11] MEDS: CALCIUM W/VIT D3 500 MG TABLET PO SCH ×3 (08:53→22:08)
[2017-01-11] MEDS: INSULIN LISPRO 1 UNIT/0.01 ML UNIT SQ SCH ×4 (08:54→22:07)
[2017-01-11] MEDS ORDERED: VANCOMYCIN 1,500 MG in 0.9 % SODIUM CHLORIDE 500 ML IV ONE (10:00)
--- NOTE | 2017-01-11 12:09 | Internal Med Progress Note ---
Medical - PN: Subj Patient information: Note initiated : 01/11/17 at 12:05 pm Service Date, if different from initiated Date: [] Patient: Ji Church 41 y/o M admitted on 01/09/17 for Cellulitis, Diabetic Foot Ulcer, Hyperkalemia. Chief Complaint: [] Interval history: January 09, 2017: History of present illness: Mr. Church is a 41 year old male with h/o DM, chr left leg wound, nathalie transmetatarsal amputations, ESRD on HD, MWF presents to the ER with complaints of fatigue, malaise, fever and chills. The patient notes that since this AM he has not been feeling well, he was doing well yesterday, he had feeling sick, tired, having fever chills and rigors, he notes that his leg was more sore than before, and his likely noticed it to be more red. He notes that he has had h/o cellulitis in the past, h/o mrsa in the past, and given that his symptoms were similar to his cellulitis in the past he decided to come to the ER In the ER he was noted to be tachycardic, febrile, with elevated wbc count, lactic acid is normal, CXR on my read shows mild pulmonary congestion. he was hyperkalemic on presentation, which was medically treated and repeat K was wnl. patient was present during the interview, and the patient denies any cough , sinus issues, any known injury to the leg, he has chr wound on the base of the foot, which has mild drainage, and he follows with Dr Sánchez for same, no worsening or increased drainage noted on that wound. The patient does not make urine, had has last HD on Tuesday and notes he tries to be compliant with dietary restrictions but is not always successful. 01/09, Pt seen examined, no acute overnight event, patient remains febrile, but denies any other complaints. His labs reviewed show that his wbc count is up to 27K, his lactate is neg, cmp shows wnl K, CXR reported as negative His leg feels better today, the area of redness has not changed significantly since yesterday, microbiology remains pending. January 10: today, the patient notes he is feeling better. His leg is feeling less tender. Although it is still quite tender to the touch. He otherwise is not experiencing subjective fever or chills, nausea or vomiting, eadaches or dizziness, chest pain or shortness of breath . He really makes no urine. e is having dialysis this morning. He did have a temperature of 100 at 4 AM, but has been afebrile since then. he reports that his metatarsal foot ulceron the left leghas very minimal drainage. -nurses note he has quite severe sleep apnea. He apparently rolling his CPAP at home, and has not been able to get another one yet. January 11: today, the patient notes he is having a little bit less tenderness in the leg, although it is still moderately tender. He is unaware of fever or chills, headaches or dizziness, chest pain or palpitations, shortness of breath, abdominal pain, nausea or vomiting. He does have some diarrhea/loose stools, which she says is fairly chronic since his gastric bypass. He denies dysuria but has minimal urine output due to CKD. -respiratory therapy did fit him with a CPAP mask last night, which he used most of the night. He thinks he does feel a little better rested today. -Dr. Acosta of wound care was kind enough to see him today also. I have been wondering ifhis left foot ulcer has anything to do with his left leg cellulitis His white blood cell count and fever have also been slow to resolve, so I am wondering about osteomyelitis. The patient says Dr. Sánchez did a foot MRI approximately one month ago. Dr. Acosta is to let us know if the patient needs more for imaging at this time. - Constitutional Vitals: Vital Signs Temp Pulse Resp BP Pulse Ox 97.8 F 74 16 124/75 95 01/11/17 08:00 01/11/17 08:00 01/11/17 08:00 01/11/17 08:00 01/11/17 08:00 Period Temp Pulse Resp BP Sys/Mcneill Pulse Ox Last 24 Hr 97 F-100.9 F 58-78 16-16 124-152/75-90 88-98 Intake and Output 01/10/17 01/11/17 01/11/17 21:59 05:59 13:59 Intake Total 200 / 200 200 / 200 550 / 550 Output Total 81042 / 28886 Balance -12281 / -76255 200 / 200 550 / 550 Weight 323 lb Intake & Output: Intake & Output 01/10/17 01/11/17 01/11/17 21:59 05:59 13:59 Intake Total 200 / 200 200 / 200 550 / 550 Output Total 65180 / 20804 Balance -97990 / -07933 200 / 200 550 / 550 Weight 323 lb Intake: IV 50 / 50 550 / 550 Zosyn 2.25 gm In Dextrose 50 / 50 50 / 50 5% in Water 50 ml @ 100 mls/hr IV Q12H [facility] Rx#: [id number] Vancomycin 1,500 mg In 500 / 500 Sodium Chloride 0.9% 500 ml @ 333.3 mls/hr IV ONCE ONE Rx#:[id number] Oral 150 / 150 200 / 200 Output: Void Amount 100 / 100 # of times incontinent of urine Hemodialysis UF 11046 / 09530 Other: Meal Dinner Percent of Meal Consumed 100% Feeding Ability Independent # Bowel Movements 1 1 n exam, he has an overweight white male, who islying back in a recliner. Neck is supple Cardiac exam regular rate and rhythm. Lungs are clear to auscultation. Abdomen is obese, but soft and nontender. Extremities: Right lower extremity has a forefoot amputation, but otherwise appears normal. Left lower extremity shows a left transmetatarsal amputation, with a small ulcer medially. There continues to be a dark, fading rash from his ankle almost up to his knee. This area still has some edema, and is quite tender to the touch, although again does seem to be receding somewhat from the inked margins. neurologic exam is grossly nonfocal Medical - PN: Obj Da - Labs CBC & Chem 7: 01/11/17 03:35 01/11/17 03:35 Labs: Abnormal Lab Results 01/11/17 01/11/17 01/10/17 03:35 03:35 04:44 WBC RBC 3.51 L Hgb 10.6 L Hct 31.1 L Gran % 86.6 H Lymph % (Auto) 8.4 L Gran # Lymph # 0.7 L Chloride 91 L 90 L Anion Gap 19.0 H 21.0 H BUN 42 H 92 H Creatinine 7.8 H* 13.0 H* Glucose 214 H 118 H Hemoglobin A1c Calcium 7.8 L 7.1 L Phosphorus 5.2 H Triglycerides 279 H 179 H 01/10/17 01/09/17 01/09/17 04:44 04:49 04:49 WBC 11.5 H 27.0 H RBC 3.27 L 3.62 L Hgb 9.9 L 10.9 L Hct 29.3 L 32.3 L Gran % 85.0 H 95.9 H Lymph % (Auto) 11.0 L 2.6 L Gran # 9.7 H 25.9 H Lymph # 1.3 L 0.7 L Chloride 91 L Anion Gap 21.0 H BUN 77 H Creatinine 9.7 H* Glucose 179 H Hemoglobin A1c 6.7 H Calcium 7.4 L Phosphorus Triglycerides January 11: temperature peaked at 100.9, around midnight last night January 09: Lactic acid is normal at 0.8. January 08: - blood Cultures are negative so far. -EKG shows normal sinus rhythm at a rate of 98, essentially normal. -chest x-ray was normal. -venous Dopplerof the left leg showed no DVT Meds: Medications Acetaminophen (Tylenol) 650 mg PO Q6HP PRN PRN Reason: PAIN/FEVER > 101 Last Admin: 01/10/17 15:26 Dose: 650 mg Acetaminophen/Hydrocodone Bitart ([place] 5/325mg) 1 tab PO Q4HP PRN PRN Reason: Pain Last Admin: 01/09/17 21:25 Dose: 1 tab Albuterol/Ipratropium (Duoneb) 3 ml NEB Q4HRT PRN PRN Reason: Shortness Of Breath Or Wheezing Calcitriol (Rocaltrol) 0.25 mcg PO MoWeFr@0900 [facility] Last Admin: 01/10/17 09:42 Dose: 0.25 mcg Calcium Carbonate/Glycine (Tums) 1,000 mg CHEWED TIDAC [facility] Last Admin: 01/11/17 11:29 Dose: Not Given Calcium/Vitamin D (Calcium W/Vit D3) 1,000 mg PO TID [facility] Last Admin: 01/11/17 08:53 Dose: 1,000 mg Dextrose (Dextrose 50%) 0 ml IV UD PRN PRN Reason: Hypoglycemia Diagnostic Test (Pha) (Accu-Chek) 1 each FS ACHS [facility] Last Admin: 01/11/17 11:29 Dose: 1 each Heparin Sodium (Porcine) (Heparin) 5,000 unit SQ Q12 [facility] Last Admin: 01/11/17 08:53 Dose: 5,000 unit Piperacillin Sod/Tazobactam (Sod 2.25 gm/ Dextrose) 50 mls @ 100 mls/hr IV Q12H [facility] Last Infusion: 01/11/17 09:30 Dose: Infused Insulin Human Lispro (Humalog) 0 unit SQ ACHS [facility] PRN Reason: Protocol Last Admin: 01/11/17 08:54 Dose: 1 unit Naloxone HCl (Narcan) 0.1 mg IV Q2MIN PRN PRN Reason: Opiate Reversal Ondansetron HCl (Zofran) 4 mg IV Q4HP PRN PRN Reason: Nausea And Vomiting Senna (Senokot) 2 tab PO HSP PRN PRN Reason: Constipation Simvastatin (Zocor) 40 mg PO HS [facility] Last Admin: 01/10/17 21:07 Dose: 40 mg Vancomycin HCl (Vancomycin Per Pharmacy) 1 order IV UD [facility] Medical - PN: A/P - Time Spent With Patient Total time spent is greater than 50% in coordination of care (as documented) at patient's floor/unit and/or counseling patient: 25 - 35 minutes - Narrative A/P Narrative: assessment and plan: #1. infectious disease. -Left lower extremity Cellulitis: given h/o MRSA, DM, and ESRD, treat with vanco and zosyn, monitor, await blood cultures. -the patient's temperature is trending down, as is his white blood cell count. We will continue with the current vancomycinand Zosyn IV. I asked Dr. Acosta a volunteer also to look at his foot and to help us decide if the patient might have underlying osteomyelitis. My understanding is that Dr. Acosat will review the most recent foot MRI, and then decide about further studies. #2.Hyperkalemia -resolved. #3.Sepsis Due to cellulitis,--resolved. #4.ESRD on HD, MWF, -BUN, creatinine, calcium, phosphorus anion gap, were all quite abnormal prior to dialysis, and/or improved this morning. -renal osteodystrophy. #5. DM, - sliding scale insulin, glucose at goal. -Diet renal diabetic #6.Code- full. #7.DVT: hep sq 38. Sleep apnea. Encourage patient to reapply for replacement CPAP. -he was started on CPAP here last night, and tolerated well. Improving nighttime oxygenation should help with wound healing. 39. Morbid obesity. Patient is status post gastric bypass. approximately 25 minutes was spent today, reviewing the patient's records and test results, reviewingplan of care with Dr. Acosta of wound care, as well as other staff, meeting with him and examining him, and writing orders. Medical - PN: Qual - VTE Deep Vein Thrombosis/Pulmonary Embolism Present on Admission: No
--- NOTE | 2017-01-11 16:51 | General Surgery Consult Note ---
History of Present Illness Patient information: Note initiated : 01/11/17 at 4:49 pm Service Date, if different from initiated Date: [] Patient: Ji Church 41 y/o M admitted on 01/09/17 for Cellulitis, Diabetic Foot Ulcer, Hyperkalemia. Chief Complaint: [] Consult date: 01/11/17 Reason for consult: wound care Requesting physician: Sara Horner History of present illness: I saw this patient for wound care consult today along with SARA Chowdary I P wound care nurse. SubsequentlyLsa, I discussed this case qt length with Dr. Sánchez , [employer] Specialist and Hospitalist Physician Dr. Sara Mota MD. I reassessed patient this morning and spoke with Dr. Sara Mota. Patient was admitted with SIRS with electrolyte imbalance, and elevated K and Creatinine. Patient has ESRD and is on regular HD regime. He has a DFU [place] 2 to 3 left plantar with prior TMA both feet. 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 US was negative for DVT. Currently recovering from SIRS, K, WBC are normal BUT creatinine is still elevated around 10. Awaits dialysis today. DENIES any GI, CVS, RS symptoms, but still has persistent tenderness of left calf without any evidence of cellulitis. Last MRI of left foot and leg about a month ago was negative for osteomyelitis per Dr. Sánchez. Medications and Allergies Home Medications Medication Instructions Recorded Confirmed Type Simvastatin [Zocor] 40 mg PO HS 02/15/15 01/08/17 History Calcitriol [Rocaltrol] 0.25 mcg PO 3XW 01/09/16 01/08/17 History calcium citrate-vitamin D3 315 2 tab PO TID 30 Days 09/30/16 01/08/17 Rx mg-200 unit tablet Calcium Acetate [Phoslo] 667 mg PO TIDCC 01/09/17 01/09/17 History Allergies Allergy/AdvReac Type Severity Reaction Status Date / Time No Known Drug Allergies Allergy Verified 01/08/16 13:43 Exam Temp Pulse Resp BP Pulse Ox 98.0 F 63 18 111/80 94 01/11/17 16:00 01/11/17 16:00 01/11/17 16:00 01/11/17 16:00 01/11/17 16:00 - General physical appearance well developed, well nourished, no distress, obese - Eyes PERRL, normal ocular movement - ENT normal pinna, normal nares, normal mucosa, no congestion - Head Head exam IM: Present: atraumatic, normal inspection, normocephalic - Neck no masses, no bruits, trachea midline, no lymphadectomy, no venous distension - Cardiovascular Cardiovascular exam IM: Present: normal rate and rhythm - Respiratory normal respiratory effort, clear to auscultation - Abdomen Abdomen: Present: soft, non tender, bowel sounds - Genitourinary Present: normal penis with no external lesions - Integumentary Present: no rash, other (LEFT forarm AVF is functioning well. NO inflammatory signs. TENDERNESS of skin and s/q tissues LEFT calf persists. ) - Neurologic Present: normal coordination, normal sensation, other (Diabetic neuropathy both feet and legs) - Musculoskeletal Present: other (Bilateral TMA of both feet. DFU left plantar anterior medial, with dry callous. NO drainage, No odor, No tenderness, underlying bone stump sites unremarkable. ) - Psychiatric Present: oriented to time, oriented to person, oriented to place, speech is normal, memory intact Results - Labs 01/12/17 03:45 01/12/17 03:45 Abnormal lab results 01/11/17 01/11/17 Range/Units 03:35 03:35 RBC 3.51 L (4.50-5.90) M/mcL Hgb 10.6 L (13.5-16.5) g/dL Hct 31.1 L (41.0-55.0) % Gran % 86.6 H (38.0-78.0) % Lymph % (Auto) 8.4 L (15.5-49.0) % Lymph # 0.7 L (1.5-4.8) K/mcL Chloride 91 L (96-108) mmol/L Anion Gap 19.0 H (8-16) BUN 42 H (6-20) mg/dl Creatinine 7.8 H* (0.7-1.2) mg/dl Glucose 214 H (70-105) mg/dL Calcium 7.8 L (8.6-10.4) mg/dl Triglycerides 279 H (<150) mg/dl Diabetes panel 01/11/17 Range/Units 03:35 Sodium 136 (133-145) mmol/L Potassium 4.4 (3.3-5.1) mmol/L Chloride 91 L (96-108) mmol/L Carbon Dioxide 26 (22-30) mmol/L BUN 42 H (6-20) mg/dl Creatinine 7.8 H* (0.7-1.2) mg/dl Glucose 214 H (70-105) mg/dL Calcium 7.8 L (8.6-10.4) mg/dl AST 15 (0-37) U/l ALT 12 (0-40) U/l Alkaline Phosphatase 66 (39-117) U/L Total Protein 6.9 (5.9-8.4) gm/dL Albumin 3.5 (3.2-5.2) gm/dL Triglycerides 279 H (<150) mg/dl Calcium panel 01/11/17 Range/Units 03:35 Calcium 7.8 L (8.6-10.4) mg/dl Phosphorus 2.9 (2.7-4.5) mg/dL Albumin 3.5 (3.2-5.2) gm/dL Pituitary panel 01/11/17 Range/Units 03:35 Sodium 136 (133-145) mmol/L Potassium 4.4 (3.3-5.1) mmol/L Chloride 91 L (96-108) mmol/L Carbon Dioxide 26 (22-30) mmol/L BUN 42 H (6-20) mg/dl Creatinine 7.8 H* (0.7-1.2) mg/dl Glucose 214 H (70-105) mg/dL Calcium 7.8 L (8.6-10.4) mg/dl Adrenal panel 01/11/17 Range/Units 03:35 Sodium 136 (133-145) mmol/L Potassium 4.4 (3.3-5.1) mmol/L Chloride 91 L (96-108) mmol/L Carbon Dioxide 26 (22-30) mmol/L BUN 42 H (6-20) mg/dl Creatinine 7.8 H* (0.7-1.2) mg/dl Glucose 214 H (70-105) mg/dL Calcium 7.8 L (8.6-10.4) mg/dl Total Bilirubin 0.4 (0.0-1.0) mg/dL AST 15 (0-37) U/l ALT 12 (0-40) U/l Alkaline Phosphatase 66 (39-117) U/L Total Protein 6.9 (5.9-8.4) gm/dL Albumin 3.5 (3.2-5.2) gm/dL All other labs normal. Assessment and Plan (1) Calf tenderness Status: Acute Priority: Medium Comment: NEED TO RULE OUT underlying soft tissue etiology soft tissues, muscles left calf and foot area. NEED MRI of left leg, ankle and foot. D/W Hospitalist Physician. Will reassess again after HD and MRI today.
[2017-01-11] MEDS ORDERED: DIPHENOXYLATE HCL/ATROPINE 1 TABLET PO PRN (18:32)
[2017-01-11] MEDS ORDERED: ONDANSETRON 4 MG/2 ML VIAL IV PRN (18:40)
[2017-01-11] MEDS ORDERED: SENNOSIDES 1 TABLET PO PRN (18:40)
[2017-01-11] MEDS ORDERED: ACETAMINOPHEN 325 MG TABLET PO PRN (18:40)
[2017-01-11] MEDS ORDERED: VANCOMYCIN PER PHARMACY IV SCH (18:40)
[2017-01-11] MEDS ORDERED: NALOXONE HCL 0.4 MG/ML VIAL IV PRN (18:40)
[2017-01-11] MEDS ORDERED: DEXTROSE 50% 50 ML VIAL IV PRN (18:40)
[2017-01-11] MEDS ORDERED: IPRATROPIUM/ALBUTEROL 3 ML AMPUL.NEB NEB PRN (18:40)
[2017-01-11] MEDS ORDERED: HYDROcodone/APAP 5/325MG TABLET PO PRN (18:40)
[2017-01-11] MEDS: SIMVASTATIN 40 MG TABLET PO SCH (22:08)
[2017-01-12] MEDS: DIPHENOXYLATE HCL/ATROPINE 1 TABLET PO PRN ×3 (01:06→21:10)
[2017-01-12 05:47] LABS: Basophils # (Auto) 0.1 K/mcL (0.0-0.3); Basophils % (Auto) 0.8 % (0.0-2.0); Eosinophils # (Auto) 0.2 K/mcL (0.0-0.7); Eosinophils % (Auto) 2.8 % (0.0-7.0); Granulocytes % (Auto) 70.5 % (38.0-78.0); Lymphocytes # (Auto) 1.6 K/mcL (1.5-4.8); Mean Cell Volume 89.7 fL (80.0-100.0); Mean Corpuscular HGB Conc 33.7 g/dL (31.0-36.0); Mean Corpuscular Hemoglobin 30.2 pg (26.0-34.0); Monocytes # (Auto) 0.5 K/mcL (0.1-0.9); Monocytes % (Auto) 5.9 % (1.0-12.0); Platelet Count 179 K/mcL (140-440); RBC 3.27 M/mcL (4.50-5.90); Red Cell Distribution Width 13.7 % (11.5-14.5)
[2017-01-12 06:12] LABS: ALT/SGPT 12 U/l (0-40); Albumin 3.6 gm/dL (3.2-5.2); Albumin/Globulin Ratio 1.1 (1.0-2.3); Alkaline Phosphatase 61 U/L (39-117); Bilirubin,Direct < 0.2 mg/dL (0.0-0.3); Blood Urea Nitrogen 55 mg/dl (6-20); Gamma Glutamyl Transpeptidase 24 U/L (8-61); Magnesium 2.3 mg/dL (1.6-2.5); Uric Acid 6.6 mg/dL (2.5-8.0)
[2017-01-12 07:15] LABS: Vancomycin,Random 29.4 ug/ml
[2017-01-12] MEDS: INSULIN LISPRO 1 UNIT/0.01 ML UNIT SQ SCH ×4 (07:44→21:53)
[2017-01-12] MEDS: CALCIUM CARBONATE 500 MG TAB.CHEW CHEWED SCH ×3 (07:46→17:33)
[2017-01-12] MEDS ORDERED: CALCITRIOL 0.25 MCG CAPSULE PO SCH (09:00)
[2017-01-12] MEDS: HEPARIN 5,000 UNIT/ML VIAL SQ SCH ×2 (09:04→21:11)
[2017-01-12] MEDS: CALCIUM W/VIT D3 500 MG TABLET PO SCH ×3 (09:04→21:10)
--- NOTE | 2017-01-12 09:11 | Internal Med Progress Note ---
Medical - PN: Subj Patient information: Note initiated : 01/12/17 at 9:11 am Service Date, if different from initiated Date: [] Patient: Ji Church 41 y/o M admitted on 01/09/17 for Cellulitis, Diabetic Foot Ulcer, Hyperkalemia. Chief Complaint: [] Interval history: January 09, 2017: History of present illness: Mr. Church is a 41 year old male with h/o DM, chr left leg wound, nathalie transmetatarsal amputations, ESRD on HD, MWF presents to the ER with complaints of fatigue, malaise, fever and chills. The patient notes that since this AM he has not been feeling well, he was doing well yesterday, he had feeling sick, tired, having fever chills and rigors, he notes that his leg was more sore than before, and his likely noticed it to be more red. He notes that he has had h/o cellulitis in the past, h/o mrsa in the past, and given that his symptoms were similar to his cellulitis in the past he decided to come to the ER In the ER he was noted to be tachycardic, febrile, with elevated wbc count, lactic acid is normal, CXR on my read shows mild pulmonary congestion. he was hyperkalemic on presentation, which was medically treated and repeat K was wnl. patient was present during the interview, and the patient denies any cough , sinus issues, any known injury to the leg, he has chr wound on the base of the foot, which has mild drainage, and he follows with Dr Sánchez for same, no worsening or increased drainage noted on that wound. The patient does not make urine, had has last HD on Tuesday and notes he tries to be compliant with dietary restrictions but is not always successful. 01/09, Pt seen examined, no acute overnight event, patient remains febrile, but denies any other complaints. His labs reviewed show that his wbc count is up to 27K, his lactate is neg, cmp shows wnl K, CXR reported as negative His leg feels better today, the area of redness has not changed significantly since yesterday, microbiology remains pending. January 10: today, the patient notes he is feeling better. His leg is feeling less tender. Although it is still quite tender to the touch. He otherwise is not experiencing subjective fever or chills, nausea or vomiting, eadaches or dizziness, chest pain or shortness of breath . He really makes no urine. e is having dialysis this morning. He did have a temperature of 100 at 4 AM, but has been afebrile since then. he reports that his metatarsal foot ulceron the left leghas very minimal drainage. -nurses note he has quite severe sleep apnea. He apparently rolling his CPAP at home, and has not been able to get another one yet. January 11: today, the patient notes he is having a little bit less tenderness in the leg, although it is still moderately tender. He is unaware of fever or chills, headaches or dizziness, chest pain or palpitations, shortness of breath, abdominal pain, nausea or vomiting. He does have some diarrhea/loose stools, which she says is fairly chronic since his gastric bypass. He denies dysuria but has minimal urine output due to CKD. -respiratory therapy did fit him with a CPAP mask last night, which he used most of the night. He thinks he does feel a little better rested today. -Dr. Acosta of wound care was kind enough to see him today also. I have been wondering ifhis left foot ulcer has anything to do with his left leg cellulitis His white blood cell count and fever have also been slow to resolve, so I am wondering about osteomyelitis. The patient says Dr. Sánhcez did a foot MRI approximately one month ago. Dr. Acosta is to let us know if the patient needs more for imaging at this time. January 12: today, the patient notes he is definitely feeling better. He is starting to wonder when he can go home. his leg is still quite tender, and he thinks the posterior calf area is more tender today than before, but overall he is more comfortable. He denies fever or chills, sore throat or cough, chest pain or palpitations, shortness of breath, abdominal pain, nausea or vomiting, constipation. He essentially has 0 urine output. He had several loose stools yesterday, but says he is not had any today. Stool tested negative for C. difficile yesterday. I met briefly with Dr. Acosta this morning, and he would like to get an MRI of the patient's leg and foot, to rule out deep underlying infection, given that the calf still so tender. - Constitutional Vitals: Vital Signs Temp Pulse Resp BP Pulse Ox 98.8 F 86 18 123/72 92 01/12/17 04:00 01/12/17 07:08 01/12/17 07:08 01/12/17 04:00 01/12/17 07:14 Period Temp Pulse Resp BP Sys/Mcneill Pulse Ox Last 24 Hr 97.6 F-98.8 F 59-86 18-20 111-126/68-80 86-96 Intake and Output 01/11/17 01/12/17 01/12/17 21:59 05:59 13:59 Intake Total 780 / 780 725 / 725 Output Total 100 / 100 Balance 780 / 780 625 / 625 Weight 328 lb on exam, he is sitting up in his recliner. He is in no acute distress. Neck shows no obvious lymphadenopathy or JVD. Cardiac exam shows regular rate and rhythm. Lungs are clear to auscultation. Abdomen is soft and nontender. Extremities:: Right lower extremity has a forefoot amputation, but otherwise appears normal. Left lower extremity shows a left transmetatarsal amputation, with a small ulcer medially. There continues to be a dark, fading rash from his ankle almost up to his knee. This area still has some edema, and is quite tender to the touch, although again does seem to be receding somewhat from the inked margins.he patient feels that the posterior calf is more tender than before but the entire area has woody edema, which is quite tender. neurologic exam is grossly nonfocal Intake & Output: Intake & Output 01/11/17 01/12/17 01/12/17 21:59 05:59 13:59 Intake Total 780 / 780 725 / 725 Output Total 100 / 100 Balance 780 / 780 625 / 625 Weight 328 lb Intake: IV 35 / 35 Zosyn 2.25 gm In Dextrose 35 / 35 5% in Water 50 ml @ 100 mls/hr IV Q12H [facility] Rx#: [id number] Oral 780 / 780 690 / 690 Output: Stool 100 / 100 Other: Meal Dinner snack Percent of Meal Consumed 100% 100% Feeding Ability Independent Assist with Tray Set Up # Bowel Movements 1 Medical - PN: Obj Da - Labs CBC & Chem 7: 01/12/17 03:45 01/12/17 03:45 Labs: Abnormal Lab Results 01/12/17 01/12/17 01/11/17 03:45 03:45 03:35 WBC RBC 3.27 L Hgb 9.9 L Hct 29.3 L Gran % Lymph % (Auto) Gran # Lymph # Chloride 95 L 91 L Anion Gap 19.0 H BUN 55 H 42 H Creatinine 10.6 H* 7.8 H* Glucose 166 H 214 H Calcium 7.5 L 7.8 L Phosphorus Triglycerides 252 H 279 H 01/11/17 01/10/17 01/10/17 03:35 04:44 04:44 WBC 11.5 H RBC 3.51 L 3.27 L Hgb 10.6 L 9.9 L Hct 31.1 L 29.3 L Gran % 86.6 H 85.0 H Lymph % (Auto) 8.4 L 11.0 L Gran # 9.7 H Lymph # 0.7 L 1.3 L Chloride 90 L Anion Gap 21.0 H BUN 92 H Creatinine 13.0 H* Glucose 118 H Calcium 7.1 L Phosphorus 5.2 H Triglycerides 179 H January 11:stool for C. difficile screen is negative. January 09: Lactic acid is normal at 0.8. January 08: - blood Cultures are negative so far. -EKG shows normal sinus rhythm at a rate of 98, essentially normal. -chest x-ray was normal. -venous Dopplerof the left leg showed no DVT Meds: Medications Acetaminophen (Tylenol) 650 mg PO Q6HP PRN PRN Reason: PAIN/FEVER > 101 Acetaminophen/Hydrocodone Bitart (Upperglade 5/325mg) 1 tab PO Q4HP PRN PRN Reason: Pain Albuterol/Ipratropium (Duoneb) 3 ml NEB Q4HRT PRN PRN Reason: Shortness Of Breath Or Wheezing Calcitriol (Rocaltrol) 0.25 mcg PO MoWeFr@0900 [facility] Last Admin: 01/12/17 09:05 Dose: 0.25 mcg Calcium Carbonate/Glycine (Tums) 1,000 mg CHEWED TIDAC [facility] Last Admin: 01/12/17 07:46 Dose: 1,000 mg Calcium/Vitamin D (Calcium W/Vit D3) 1,000 mg PO TID [facility] Last Admin: 01/12/17 09:04 Dose: 1,000 mg Dextrose (Dextrose 50%) 0 ml IV UD PRN PRN Reason: Hypoglycemia Diagnostic Test (Pha) (Accu-Chek) 1 each FS ACHS [facility] Last Admin: 01/12/17 07:42 Dose: 1 each Diphenoxylate HCl/Atropine (Lomotil) 1 tab PO Q4HP PRN PRN Reason: Diarrhea Last Admin: 01/12/17 01:06 Dose: 1 tab Heparin Sodium (Porcine) (Heparin) 5,000 unit SQ Q12 [facility] Last Admin: 01/12/17 09:04 Dose: 5,000 unit Piperacillin Sod/Tazobactam (Sod 2.25 gm/ Dextrose) 50 mls @ 100 mls/hr IV Q12H [facility] Last Infusion: 01/11/17 22:30 Dose: 0 mls/hr Insulin Human Lispro (Humalog) 0 unit SQ [facility] PRN Reason: Protocol Last Admin: 01/12/17 07:44 Dose: Not Given Naloxone HCl (Narcan) 0.1 mg IV Q2MIN PRN PRN Reason: Opiate Reversal Ondansetron HCl (Zofran) 4 mg IV Q4HP PRN PRN Reason: Nausea And Vomiting Senna (Senokot) 2 tab PO HSP PRN PRN Reason: Constipation Simvastatin (Zocor) 40 mg PO HS [facility] Last Admin: 01/11/17 22:08 Dose: 40 mg Vancomycin HCl (Vancomycin Per Pharmacy) 1 order IV [facility] Medical - PN: A/P - Time Spent With Patient Total time spent is greater than 50% in coordination of care (as documented) at patient's floor/unit and/or counseling patient: 25 - 35 minutes - Narrative A/P Narrative: assessment and plan: #1. infectious disease. -left lower leg cellulitis. It is unclear at this time, if there is underlying deep tissue infection or osteomyelitis. MRI of the left lower extremity and foot has been ordered for this afternoon. continue IV vancomycin and Zosyn, given high risk for MRSA and other complicated diabetic infection. -Blood cultures are negative so far -Left lower extremity Cellulitis: given h/o MRSA, DM, and ESRD, treat with vanco and zosyn, monitor, await blood cultures. -He has now been afebrile for a little over 24 hours. -Dr. Acosta of wound care, is following, and will help decide our next steps after reviewing his MRI. #2.Hyperkalemia -resolved. #3.Sepsis Due to cellulitis,--resolved. #4.ESRD on HD, MWF, -BUN, creatinine, calcium, phosphorus anion gap, were all quite abnormal at presentation. he is scheduled for dialysis later today. -renal osteodystrophy. #5. DM, - sliding scale insulin, glucose at goal. -Diet renal diabetic #6.Code- full. #7.DVT: hep sq 38. Sleep apnea. Encourage patient to reapply for replacement CPAP. -he was started on CPAP here , and tolerated well. Improving nighttime oxygenation should help with wound healing. -since it sounds like he stopped using his CPAP several years ago, he will be referred to pulmonary, to get him set up for home CPAP again, as this clearly will have an impact on his long winder tender morbidity. 39. Morbid obesity. Patient is status post gastric bypass. approximately 30 minutes was spent today, reviewing the patient's records and test results, reviewing plan of care with Dr. Acosta of wound care, as well as other staff, meeting with him and examining him, and writing orders. Medical - PN: Qual - VTE Deep Vein Thrombosis/Pulmonary Embolism Present on Admission: No
--- NOTE | 2017-01-12 15:35 | Nephrology Progress Note ---
Subjective Patient information: Note initiated : 01/12/17 at 3:33 pm Service Date, if different from initiated Date: [] Patient: Ji Church 41 y/o M admitted on 01/09/17 for Cellulitis, Diabetic Foot Ulcer, Hyperkalemia. Chief Complaint: [] Principal diagnosis: cellulitis Interval history: Patient had no fever for the last 24 hours but LE still red and inflammed woundcare has recommended MRI given persistent inflammation to r/o osteomyelitis still on zosyn and vanc no other issues, denies SOB, CP, dizziness Pertinent ROS: as above Objective - Vital Signs Vital signs: Vital Signs Temp Pulse Pulse Resp BP BP Pulse Ox 01/12/17 14:50 97.8 F 68 125/73 01/12/17 14:33 67 103/57 01/12/17 14:03 68 139/78 01/12/17 13:34 69 120/78 01/12/17 13:06 60 121/71 01/12/17 12:35 61 128/79 01/12/17 12:18 62 136/79 01/12/17 12:02 65 124/79 01/12/17 12:00 98.0 F 65 16 124/79 01/12/17 11:36 58 L 151/79 01/12/17 11:04 61 139/81 01/12/17 10:33 68 141/98 01/12/17 10:05 97.5 F 75 130/71 01/12/17 08:00 98.8 F 16 118/59 97 01/12/17 07:14 92 01/12/17 07:08 86 18 92 01/12/17 05:00 86 L 01/12/17 04:00 98.8 F 59 L 18 123/72 92 01/12/17 00:00 98.3 F 60 18 121/68 96 01/11/17 19:31 97.9 F 62 20 124/71 94 01/11/17 19:30 95 01/11/17 16:00 98.0 F 63 18 111/80 94 Intake and Output 01/12/17 01/12/17 01/12/17 05:59 13:59 21:59 Intake Total 725 / 725 240 / 240 300 / 300 Output Total 100 / 100 18609 / 76394 05979 / 99226 Balance 625 / 881 -00774 / -12653 -18689 / -95449 Intake: IV 35 / 35 Zosyn 2.25 gm In Dextrose 35 / 35 5% in Water 50 ml @ 100 mls/hr IV Q12H [facility] Rx#: [id number] Oral 690 / 690 240 / 240 300 / 300 Output: Stool 100 / 100 Hemodialysis UF 53384 / 27926 38978 / 85075 Other: Meal snack Breakfast Lunch Percent of Meal Consumed 100% 100% 100% Feeding Ability Assist with Tray Set Up # Bowel Movements 2 Intake & Output: Intake & Output 01/12/17 01/12/17 01/12/17 05:59 13:59 21:59 Intake Total 725 / 725 240 / 240 300 / 300 Output Total 100 / 100 12638 / 96868 21791 / 50282 Balance 625 / 625 -55387 / -12330 -33615 / -19776 Intake: IV 35 / 35 Zosyn 2.25 gm In Dextrose 35 / 35 5% in Water 50 ml @ 100 mls/hr IV Q12H [facility] Rx#: [id number] Oral 690 / 690 240 / 240 300 / 300 Output: Stool 100 / 100 Hemodialysis UF 78701 / 05027 27082 / 02590 Other: Meal snack Breakfast Lunch Percent of Meal Consumed 100% 100% 100% Feeding Ability Assist with Tray Set Up # Bowel Movements 2 - General Appearance General appearance: appears started age, obese EENT: mucous membranes moist Neck: no JVD Respiratory: clear Cardiology: no rub, no edema, normal S1, normal S2 Gastrointestinal: no tenderness, no guarding Integumentary: erythema (left LE with changes of cellulitis) Musculoskeletal: no clubbing Psychiatric: mood/affect appropriate - Lab 01/12/17 03:45 01/12/17 03:45 Most recent lab results Calcium 7.5 mg/dl (8.6-10.4) L 01/12/17 03:45 Phosphorus 3.8 mg/dL (2.7-4.5) 01/12/17 03:45 Magnesium 2.3 mg/dL (1.6-2.5) 01/12/17 03:45 Assessment and Plan (1) ESRD on dialysis HD today for 5 hrs using revaclear max dialyser, 3K/2.5Ca dialysate at QB 400ML/ MIN, qd 800ml/min, UF goal to DW dose meds per dialysis chronic mild hypocalcemia in the setting of renal osteodystrophy and gastric bypass, stable, phos l;evel at goal Hb near goal will resume aranesp as outpt LE cellulitis on antibiotics, will need MRI prior to discharge Will follow along Thank you for giving me an opportunity to participate in Mr Church's medical care, appreciate it Status: Acute (2) Cellulitis Status: Acute Qualifiers: Site of cellulitis: extremity Site of cellulitis of extremity: lower extremity Laterality: left Qualified Code(s): L03.116 - Cellulitis of left lower limb
[2017-01-12] MEDS: PIPERACILLIN SODIUM/TAZOBACTAM 2.25 GM in DEXTROSE 5% IN WATER 50 ML IV SCH (17:31)
[2017-01-12] MEDS: SIMVASTATIN 40 MG TABLET PO SCH (21:10)
[2017-01-13] MEDS: PIPERACILLIN SODIUM/TAZOBACTAM 2.25 GM in DEXTROSE 5% IN WATER 50 ML IV SCH (03:02)
[2017-01-13 07:00] LABS: Basophils # (Auto) 0.1 K/mcL (0.0-0.3); Basophils % (Auto) 1.1 % (0.0-2.0); Eosinophils # (Auto) 0.2 K/mcL (0.0-0.7); Eosinophils % (Auto) 3.3 % (0.0-7.0); Granulocytes % (Auto) 56.6 % (38.0-78.0); Lymphocytes # (Auto) 2.3 K/mcL (1.5-4.8); Lymphocytes % (Auto) 32.8 % (15.5-49.0); Mean Cell Volume 90.1 fL (80.0-100.0); Mean Corpuscular HGB Conc 33.5 g/dL (31.0-36.0); Mean Corpuscular Hemoglobin 30.2 pg (26.0-34.0); Monocytes # (Auto) 0.4 K/mcL (0.1-0.9); Monocytes % (Auto) 6.2 % (1.0-12.0); Platelet Count 202 K/mcL (140-440); RBC 3.31 M/mcL (4.50-5.90); Red Cell Distribution Width 13.7 % (11.5-14.5)
--- NOTE | 2017-01-13 07:44 | Magnetic Resonance Report ---
History: Diabetic nonhealing foot ulcer with cellulitis, status post amputation of the toes Technique: Multiplanar imaging was performed using multiple pulse sequences of the foot and ankle. Findings: Patient has had a transmetatarsal amputation performed of all five toes. There is some scar tissue adjacent to the distal end of the stump of the first metatarsal. Generalized cellulitis and edema is present throughout the foot with the greatest involvement inferior and medial to the remaining stump of the first metatarsal. There is a small skin ulceration at this site. There is no evidence of an abscess. Normal signal is present in the bone marrow throughout the tarsals and remaining metatarsals. There is no evidence of osteomyelitis or septic joint. No joint effusion is present. The ankle joint appears normal without evidence of inflammation or effusion. The tendons surrounding the ankle appear normal. Impression: Cellulitis, predominantly involving the distal end of the foot with an associated skin ulcer. No evidence of osteomyelitis or abscess Interpreted and Authenticated by: Tylor Blair 01/13/17
[2017-01-13 07:47] LABS: ALT/SGPT 13 U/l (0-40); Albumin 3.3 gm/dL (3.2-5.2); Albumin/Globulin Ratio 0.9 (1.0-2.3); Alkaline Phosphatase 56 U/L (39-117); Bilirubin,Direct < 0.2 mg/dL (0.0-0.3); Blood Urea Nitrogen 34 mg/dl (6-20); Gamma Glutamyl Transpeptidase 22 U/L (8-61); Magnesium 2.1 mg/dL (1.6-2.5); Uric Acid 4.7 mg/dL (2.5-8.0)
--- NOTE | 2017-01-13 07:48 | Magnetic Resonance Report ---
History: Cellulitis with swelling and pain through the calf. Patient is a diabetic Technique: Multiplanar imaging was performed using multiple pulse sequences. Findings: There is moderate edema of the subcutaneous tissues from the level of the ankle to the upper calf. There is no evidence of an abscess or mass. The muscles in the calf appear normal without evidence of infection or tear. There is normal signal in the bone marrow within the tibia and fibula. However, there is a simple cortical cyst at the knee, beneath the tibial spines. This is due to arthritis. Impression: Generalized edema throughout the calf extending down to the ankle. No evidence of osteomyelitis or abscess Interpreted and Authenticated by: Tylor Blair 01/13/17
[2017-01-13] MEDS: CALCIUM W/VIT D3 500 MG TABLET PO SCH (08:17)
[2017-01-13] MEDS: CALCIUM CARBONATE 500 MG TAB.CHEW CHEWED SCH (08:17)
[2017-01-13] MEDS: HEPARIN 5,000 UNIT/ML VIAL SQ SCH (08:17)
[2017-01-13] MEDS: INSULIN LISPRO 1 UNIT/0.01 ML UNIT SQ SCH (08:18)
--- NOTE | 2017-01-13 08:27 | General Surgery Progress Note ---
Subjective Patient reports: no new complaints, other (Feels better. Keen to go home and f/ u with Dr. Chatterjee Athletic Agent at [facility] as out patient.) Narrative: Note initiated : 01/13/17 at 8:23 am Service Date, if different from initiated Date: [] Patient: Ji Church 41 y/o M admitted on 01/09/17 for Cellulitis, Diabetic Foot Ulcer, Hyperkalemia. Chief Complaint: [] Objective Temp Pulse Resp BP Pulse Ox 98.6 F 57 L 14 128/75 95 01/13/17 03:37 01/13/17 03:37 01/13/17 03:37 01/13/17 03:37 01/13/17 07:16 AVSS. NO changes in RICHARD. Tenderness of left calf, leg and foot has resolved. Underwent HD and MRI of left leg and foot late yesterday evening. Creatinine is trending down and K is normal . WBC is normal. MRI of left leg and foot / ankle does NOT show any collection or abscess. - Additional Data Intake & Output - Last 24 hours: Intake & Output 01/11/17 01/12/17 01/13/17 01/14/17 05:59 05:59 05:59 05:59 Intake Total 810 / 810 2054 / 2054 1310 / 1310 Output Total 29302 / 81206 100 / 100 11057 / 22361 Balance -48744 / -33652 1954 / 1954 -59923 / -09338 Weight 323 lb 328 lb 321 lb 8 oz - Labs 01/13/17 05:25 01/13/17 05:25 Diabetes panel 01/13/17 Range/Units 05:25 Sodium 138 (133-145) mmol/L Potassium 4.2 (3.3-5.1) mmol/L Chloride 94 L (96-108) mmol/L Carbon Dioxide 26 (22-30) mmol/L BUN 34 H (6-20) mg/dl Creatinine 7.4 H* (0.7-1.2) mg/dl Glucose 171 H (70-105) mg/dL Calcium 7.7 L (8.6-10.4) mg/dl AST 12 (0-37) U/l ALT 13 (0-40) U/l Alkaline Phosphatase 56 (39-117) U/L Total Protein 6.8 (5.9-8.4) gm/dL Albumin 3.3 (3.2-5.2) gm/dL Triglycerides 183 H (<150) mg/dl Calcium panel 01/13/17 Range/Units 05:25 Calcium 7.7 L (8.6-10.4) mg/dl Phosphorus 4.0 (2.7-4.5) mg/dL Albumin 3.3 (3.2-5.2) gm/dL Pituitary panel 01/13/17 Range/Units 05:25 Sodium 138 (133-145) mmol/L Potassium 4.2 (3.3-5.1) mmol/L Chloride 94 L (96-108) mmol/L Carbon Dioxide 26 (22-30) mmol/L BUN 34 H (6-20) mg/dl Creatinine 7.4 H* (0.7-1.2) mg/dl Glucose 171 H (70-105) mg/dL Calcium 7.7 L (8.6-10.4) mg/dl Adrenal panel 01/13/17 Range/Units 05:25 Sodium 138 (133-145) mmol/L Potassium 4.2 (3.3-5.1) mmol/L Chloride 94 L (96-108) mmol/L Carbon Dioxide 26 (22-30) mmol/L BUN 34 H (6-20) mg/dl Creatinine 7.4 H* (0.7-1.2) mg/dl Glucose 171 H (70-105) mg/dL Calcium 7.7 L (8.6-10.4) mg/dl Total Bilirubin 0.4 (0.0-1.0) mg/dL AST 12 (0-37) U/l ALT 13 (0-40) U/l Alkaline Phosphatase 56 (39-117) U/L Total Protein 6.8 (5.9-8.4) gm/dL Albumin 3.3 (3.2-5.2) gm/dL Assessment and Plan (1) Calf tenderness Problem details: NEED TO RULE OUT underlying soft tissue etiology soft tissues , muscles left calf and foot area. NEED MRI of left leg, ankle and foot. D/W Hospitalist Physician. Will reassess again after HD and MRI today. Status: Acute Assessment and plan: Satisfactory resolution of SIRS. Patient back to base line. OK to discharge from wound care point of view with PO antibiotics and local wound care. Spoke with Hospitalist. Patient will f/u with Dr. Chatterjee at [facility]. I will sigh off at this time., Current Visit: Yes - Time Spent With Patient Total time spent is greater than 50% in coordination of care (as documented) at patient's floor/unit and/or counseling patient: 15 - 24 minutes
[2017-01-13 08:36] LABS: Vancomycin,Random 18.9 ug/ml
--- NOTE | 2017-01-13 09:30 | Discharge Summary ---
Medical - DS: Prov Patient information: Note initiated : 01/13/17 at 9:28 am Patient: Ji Church a 41 y/o M admitted on 01/09/17 for Cellulitis, Diabetic Foot Ulcer, Hyperkalemia. Date of admission: 01/09/17 01:14 Discharge date: 01/13/17 Primary care physician: Yung Harper [facility] Admitting clinician: Gumaro Peña Consults: 01/11/17 08:06 Consult to Physician [CONS] Routine Comment: cellulitis, ?due to foot ulcer Consulting Provider: Elliott Acosta Reason For Exam: Physician to Consult Attending physician on discharge: Sara Horner Medical - DS: Meds - Discharge Medications Prescriptions: Sulfamethoxazole/Trimethoprim [Bactrim Ds Tablet] 1 each PO BID #14 tablet Active and Home Medications: Home Medications Simvastatin [Zocor] 40 mg PO HS 02/15/15 [History Confirmed 01/08/17 Last Taken 02/10/16] Calcitriol [Rocaltrol] 0.25 mcg PO 3XW 01/09/16 [History Confirmed 01/08/17 Last Taken 01/09/16 06:00] calcium citrate-vitamin D3 315 mg-200 unit tablet 2 tab PO TID 30 Days 09/30/16 [Rx Confirmed 01/08/17 Last Taken Unknown] Calcium Acetate [Phoslo] 667 mg PO TIDCC 01/09/17 [History Confirmed 01/09/17 Last Taken 01/09/17 12:30] Medical - DS: Hosp Hospital course: Mr. Church is a 41 year old male January 09, 2017: History of present illness: Mr. Church is a 41 year old male with h/o DM, chr left leg wound, nathalie transmetatarsal amputations, ESRD on HD, MWF presents to the ER with complaints of fatigue, malaise, fever and chills. The patient notes that since this AM he has not been feeling well, he was doing well yesterday, he had feeling sick, tired, having fever chills and rigors, he notes that his leg was more sore than before, and his likely noticed it to be more red. He notes that he has had h/o cellulitis in the past, h/o mrsa in the past, and given that his symptoms were similar to his cellulitis in the past he decided to come to the ER In the ER he was noted to be tachycardic, febrile, with elevated wbc count, lactic acid is normal, CXR on my read shows mild pulmonary congestion. he was hyperkalemic on presentation, which was medically treated and repeat K was wnl. patient was present during the interview, and the patient denies any cough , sinus issues, any known injury to the leg, he has chr wound on the base of the foot, which has mild drainage, and he follows with Dr Sánchez for same, no worsening or increased drainage noted on that wound. The patient does not make urine, had has last HD on Tuesday and notes he tries to be compliant with dietary restrictions but is not always successful. 01/09, Pt seen examined, no acute overnight event, patient remains febrile, but denies any other complaints. His labs reviewed show that his wbc count is up to 27K, his lactate is neg, cmp shows wnl K, CXR reported as negative His leg feels better today, the area of redness has not changed significantly since yesterday, microbiology remains pending. January 10: today, the patient notes he is feeling better. His leg is feeling less tender. Although it is still quite tender to the touch. He otherwise is not experiencing subjective fever or chills, nausea or vomiting, eadaches or dizziness, chest pain or shortness of breath . He really makes no urine. e is having dialysis this morning. He did have a temperature of 100 at 4 AM, but has been afebrile since then. he reports that his metatarsal foot ulceron the left leghas very minimal drainage. -nurses note he has quite severe sleep apnea. He apparently rolling his CPAP at home, and has not been able to get another one yet. January 11: today, the patient notes he is having a little bit less tenderness in the leg, although it is still moderately tender. He is unaware of fever or chills, headaches or dizziness, chest pain or palpitations, shortness of breath, abdominal pain, nausea or vomiting. He does have some diarrhea/loose stools, which she says is fairly chronic since his gastric bypass. He denies dysuria but has minimal urine output due to CKD. -respiratory therapy did fit him with a CPAP mask last night, which he used most of the night. He thinks he does feel a little better rested today. -Dr. Acosta of wound care was kind enough to see him today also. I have been wondering ifhis left foot ulcer has anything to do with his left leg cellulitis His white blood cell count and fever have also been slow to resolve, so I am wondering about osteomyelitis. The patient says Dr. Sánchez did a foot MRI approximately one month ago. Dr. Acosta is to let us know if the patient needs more for imaging at this time. January 12: today, the patient notes he is definitely feeling better. He is starting to wonder when he can go home. his leg is still quite tender, and he thinks the posterior calf area is more tender today than before, but overall he is more comfortable. He denies fever or chills, sore throat or cough, chest pain or palpitations, shortness of breath, abdominal pain, nausea or vomiting, constipation. He essentially has 0 urine output. He had several loose stools yesterday, but says he is not had any today. Stool tested negative for C. difficile yesterday. I met briefly with Dr. Acosta this morning, and he would like to get an MRI of the patient's leg and foot, to rule out deep underlying infection, given that the calf still so tender. January 13, 2017: Hospital course: his patient presented quite ill,with significant left lower leg cellulitis, associated with tachycardia fever,leukocytosis, and addition to his chronic renal failure. He also had a non-healed ulcer on his left forefoot. He was treated empiricallywith vancomycin and Zosyn to cover usual diabetic foot organisms, and addition to MRSA. he was a bit slow to respond clinically, with continued fever and leukocytosis. However by yesterday he was starting to show improvement in his leg redness and tenderness, and todayis quite a bit improved. Because of concern of underlying soft tissue or bone infection, MRI of the left lower extremity was done yesterday. this shows generalized edema but no evidence of osteomyelitis or abscess. dr. Acosta met with the patient today, and feels that he is clinically improved enough, that he can be discharged on oral antibiotics. he should follow up with Dr. Sánchez of podiatry in the next few days, for a recheck. .otherwise, today, the patient denies subjective fever or chills, chest pain or shortness of breath abdominal pain, nausea or vomiting. He does continue to have occasional loose stools. He denies any significant urine output on exam, he is sitting up on the side of his bed. He is quite adamant about leaving before 11 AM, and says he will leave AMA if we do not discharge him. Otherwise, he is in no acute distress. Neck shows no obvious lymphadenopathy or JVD. Cardiac exam shows regular rate and rhythm. Lungs are clear to auscultation. Abdomen is soft and nontender. Extremities:: Right lower extremity has a forefoot amputation, but otherwise appears normal. Left lower extremity shows a left transmetatarsal amputation, with a small ulcer medially. There continues to be a dark, fading rash from his ankle almost up to his knee. This area still has some edema, But is less tender to the touch , although again does seem to be receding somewhat from the inked margins.he patient feels that the posterior calf is more tender than before but the entire area has woody edema, which is tender, but better every day.. neurologic exam is grossly nonfocal assessment and plan: #1. infectious disease. -left lower leg cellulitis. clinically this is gradually improving. I suspect part of the reason this was so slow to resolve isrelated to poor circulation, morbid obesity, and sleep apnea which has caused significant nighttime hypoxia. -dr. Acosta reviewed his MRI, and feels that the patient can be safely discharged today, on oral antibiotics. The patient is encouraged to watch his leg closely, and if signs and symptoms worsen, to report to his physician immediately. The patient is status post 4 days of IV vancomycin and IV Zosyn. He will be discharged on oral Bactrim, to cover typical gram positives and gram negatives, and addition to MRSA. -Blood cultures are negative so far -there was no wound discharge to culture. #2.Hyperkalemia -resolved. #3.Sepsis Due to cellulitis,--resolved. #4.ESRD on HD, MWF, -BUN, creatinine, calcium, phosphorus anion gap, were all quite abnormal at presentation. -resume outpatien nephrology follow-up, with dialysis. patient does have chronic hypocalcemia, and continues on calcium supplements. #5. DM, -appears well controlled. hemoglobin A1c was 6.7% on January 09. -Diet renal diabetic #6.Code- full. #7.DVT: hep sq 38. Sleep apnea. -he was started on CPAP here , and tolerated well. Improving nighttime oxygenation should help with wound healing. 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 -referral was requested to Dr. Bradford 39. Morbid obesity. Patient is status post gastric bypass. approximately 35 minutes was spent today, reviewing the patient's records and test results, reviewing plan of care with Dr. Acosta of wound care, as well as other staff, meeting with him and examining him, and writing ordersoordinating care.. Discharge diagnosis: left distal leg cellulitis,SIRS syndrome, hyperkalemia CKD - Time Spent with Patient Total time spent providing and/or coordinating discharge services: Greater than 30 minutes Medical - DS: Exam - Constitutional Vitals: Vital Signs Temp Pulse Pulse Resp BP BP Pulse Ox 01/13/17 08:00 98.0 F 20 132/68 96 01/13/17 07:16 95 01/13/17 03:37 98.6 F 57 L 14 128/75 94 01/12/17 23:22 98.5 F 55 L 14 124/72 96 01/12/17 21:16 95 01/12/17 20:00 98.6 F 73 14 143/79 95 01/12/17 16:00 98.3 F 55 L 16 117/58 93 01/12/17 14:50 97.8 F 68 125/73 01/12/17 14:33 67 103/57 01/12/17 14:03 68 139/78 01/12/17 13:34 69 120/78 01/12/17 13:06 60 121/71 01/12/17 12:35 61 128/79 01/12/17 12:18 62 136/79 01/12/17 12:02 65 124/79 01/12/17 12:00 98.0 F 65 16 124/79 01/12/17 11:36 58 L 151/79 01/12/17 11:04 61 139/81 01/12/17 10:33 68 141/98 01/12/17 10:05 97.5 F 75 130/71 Intake and Output 01/12/17 01/13/17 01/13/17 21:59 05:59 13:59 Intake Total 590 / 590 480 / 480 Output Total 67691 / 94658 Balance -65823 / -39687 480 / 480 Intake: IV 50 / 50 Zosyn 2.25 gm In Dextrose 50 / 50 5% in Water 50 ml @ 100 mls/hr IV Q12H [facility] Rx#: [id number] Oral 540 / 540 480 / 480 Output: Hemodialysis UF 50685 / [id number] Other: Meal Dinner [place], cheese stick Breakfast Percent of Meal Consumed 100% 100% 100% Feeding Ability Independent Independent # Bowel Movements 2 Weight 321 lb 8 oz Medical - DS: Data Labs on day of discharge: Labs from last 24 hours 01/13/17 01/13/17 01/13/17 05:25 05:25 05:25 WBC 7.1 RBC 3.31 L Hgb 10.0 L Hct 29.8 L MCV 90.1 MCH 30.2 MCHC 33.5 RDW 13.7 Plt Count 202 MPV 9.7 Gran % 56.6 Lymph % (Auto) 32.8 [place] % (Auto) 6.2 Eos % (Auto) 3.3 Baso % (Auto) 1.1 Gran # 4.0 Lymph # 2.3 [place] # 0.4 Eos # 0.2 Baso # 0.1 Sodium 138 Potassium 4.2 Chloride 94 L Carbon Dioxide 26 Anion Gap 18.0 H BUN 34 H Creatinine 7.4 H* GFR Calculation 8 Glucose 171 H Uric Acid 4.7 Calcium 7.7 L Phosphorus 4.0 Magnesium 2.1 Total Bilirubin 0.4 Direct Bilirubin < 0.2 GGT 22 AST 12 ALT 13 Alkaline Phosphatase 56 Lactate Dehydrogenase 164 Total Protein 6.8 Albumin 3.3 Globulin 3.5 Albumin/Globulin Ratio 0.9 L Triglycerides 183 H Random Vancomycin 18.9 Vancomycin Dose Not Reportable Vanco Last Dose Time Not Reportable january 12: MRI of the left lower legshows generalized edema throughout the calf, extending down to the ankle. No evidence of osteomyelitis or abscess. MRI of the left foot: Shows cellulitis involving the distal end of the foot with an associated skin ulcer, but no evidence of osteomyelitis or abscess. January 11:stool for C. difficile screen is negative. January 09: Lactic acid is normal at 0.8. January 08: - blood Cultures are negative so far. -EKG shows normal sinus rhythm at a rate of 98, essentially normal. -chest x-ray was normal. -venous Doppler of the left leg showed no DVT Medical - DS: A/P - Patient/Caregiver Discharge Instructions Activity: increase activity as tolerated Diet: Renal/Consistent Carbs Additional Instructions: #1. bactrim DS an antibiotic, has been prescribed. Please take this twice a day for the next week. #2. Please follow-up with Dr. Sánchez as soon as possible, next week, to recheck your left leg cellulitis. Please call your doctor immediately for any signs of worsening of the rash or swelling. #3. Please do notsit or stand for long periods until the rash has resolved. Please get up and move around frequently. When you're lying down, please keep your left leg elevated above the level of your abdomen. #4. We will refer you to Dr. Bradford of pulmonary You need to resume your home CPAP as soon as possible, as low oxygen at night is interfering with wound healing. #5. Please stay off work and pay close attention to your infected leg, for the next few days. If all is going well, he may return to work on Monday, January 16, 2017. Prescriptions: Sulfamethoxazole/Trimethoprim [Bactrim Ds Tablet] 1 each PO BID #14 tablet - Follow up Plan Follow up with: Wilfred Mak DPM [Physician] - Simeon Bradford MD [Physician] - 01/21/17 1:00 pm Yung Tamayo MD [Primary Care Provider] - Disposition: Home, Self-Care Prognosis: Good Rehab Potential: Good Overall status at discharge: patient is progressing back to baseline Medical - DS: Qual - VTE Deep Vein Thrombosis/Pulmonary Embolism Present on Admission: No
== END 2017-01-13 10:50 | disposition home or self-care (01) | DRG 871 ==
LOC: ED 19:02 → ICU 01-09 01:14 → SUATTDRO 01-09 01:14 → ICU 01-09 01:15 → MEDSUR 01-12 18:47
PROVIDERS: ADMIT Internal Medicine; ATTEND Internal Medicine